=== PATIENT | female | born 1980 | race Caucasian/White ===

== ENCOUNTER 2017-05-27 12:27 | Emergency (ER) | payer SELFPAY ==
[~2017-05-27] VITALS: Ht 165.1 cm; Wt 108.0 kg
[2017-05-27] MEDS ORDERED: IOHEXOL 350 MG/ML 10 ML VIAL (for RAD DIAG) IVCONTRAST ONE (12:28)
--- NOTE | 2017-05-27 14:45 | PD ---
HPI Chief Complaint: abdominal pain Time Seen by Provider: 14:45 Travel History International Travel<30 days: No Contact w/Intl Traveler<30days: No History of Present Illness HPI 36-year-old female presents to the ED for evaluation of 3 or 4 month history intermittent right upper quadrant abdominal pain, nausea and vomiting. Worsened over the last 2 days. Patient endorses accompanying chills and constipation. No alleviating or exacerbating factors reported. Patient denies previous abdominal surgery. She denies alcohol use. PFSH Social History Tobacco Use: No Allergies-Medications (Allergen,Severity, Reaction): Coded Allergies: No Known Allergies (Verified , 06/11/03) Uncoded Allergies: NKA (Allergy, Unknown, 06/12/03) Reported Meds & Prescriptions Reported Meds & Active Scripts Active Lortab (Hydrocodone-Acetaminophen) 5-325 Mg Tab 1 Tab PO Q6H PRN Zofran Odt (Ondansetron Odt) 4 Mg Tab 4 Mg SL Q6HR PRN Review of Systems Except as stated in HPI: all other systems reviewed are Neg Physical Exam Narrative GENERAL: Well-nourished, well-developed tearful, obese female in no acute distress. SKIN: Focused skin assessment warm/dry. HEAD: Normocephalic. EYES: No scleral icterus. No injection or drainage. NECK: Supple, trachea midline. No JVD or lymphadenopathy. CARDIOVASCULAR: Regular rate and rhythm without murmurs, gallops, or rubs. RESPIRATORY: Breath sounds equal bilaterally. No accessory muscle use. GASTROINTESTINAL: Abdomen soft, protuberant, nondistended. Tender to palpation in the right upper quadrant. No palpable hepatosplenomegaly. Active bowel sounds. MUSCULOSKELETAL: No cyanosis, or edema. BACK: Nontender without obvious deformity. No CVA tenderness. Data Data Last Documented VS Vital Signs Date Time Temp Pulse Resp B/P (MAP) Pulse Ox O2 Delivery O2 Flow Rate FiO2 05/27/17 19:04 77 17 167/59 (95) 100 05/27/17 14:46 98.8 Orders Orders Complete Blood Count With Diff (05/27/17 15:15) Comprehensive Metabolic Panel (05/27/17 15:15) Lipase (05/27/17 15:15) Urinalysis - C+S If Indicated (05/27/17 15:15) Us Abdomen Gallbladder (05/27/17 ) Iv Access Insert/Monitor (05/27/17 15:15) Ecg Monitoring (05/27/17 15:15) Oximetry (05/27/17 15:15) NPO (05/27/17 15:15) Morphine Inj (Morphine Inj) (05/27/17 15:15) Ondansetron Inj (Zofran Inj) (05/27/17 15:15) Sodium Chlor 0.9% 1000 Ml Inj (Ns 1000 M (05/27/17 15:15) Sodium Chloride 0.9% Flush (Ns Flush) (05/27/17 15:15) Ed Urine Pregnancytest Poc (05/27/17 15:15) Ct Abd/Pel W Iv Contrast(Rout) (05/27/17 16:17) Iohexol 350 Inj (Omnipaque 350 Inj) (05/27/17 12:28) Potassium Chloride (Kcl) (05/27/17 19:30) Ondansetron Inj (Zofran Inj) (05/27/17 20:00) Morphine Inj (Morphine Inj) (05/27/17 20:00) Labs Laboratory Tests Test 05/27/17 15:25 05/27/17 18:25 White Blood Count 7.2 TH/MM3 Red Blood Count 5.47 MIL/MM3 Hemoglobin 16.1 GM/DL Hematocrit 48.1 % Mean Corpuscular Volume 88.0 FL Mean Corpuscular Hemoglobin 29.4 PG Mean Corpuscular Hemoglobin Concent 33.5 % Red Cell Distribution Width 13.9 % Platelet Count 249 TH/MM3 Mean Platelet Volume 8.4 FL Neutrophils (%) (Auto) 63.6 % Lymphocytes (%) (Auto) 22.4 % Monocytes (%) (Auto) 9.9 % Eosinophils (%) (Auto) 3.5 % Basophils (%) (Auto) 0.6 % Neutrophils # (Auto) 4.6 TH/MM3 Lymphocytes # (Auto) 1.6 TH/MM3 Monocytes # (Auto) 0.7 TH/MM3 Eosinophils # (Auto) 0.3 TH/MM3 Basophils # (Auto) 0.0 TH/MM3 CBC Comment DIFF FINAL Differential Comment Blood Urea Nitrogen 9 MG/DL Creatinine 0.64 MG/DL Random Glucose 87 MG/DL Total Protein 7.8 GM/DL Albumin 3.8 GM/DL Calcium Level 8.8 MG/DL Alkaline Phosphatase 78 U/L Aspartate Amino Transf (AST/SGOT) 11 U/L Alanine Aminotransferase (ALT/SGPT) 10 U/L Total Bilirubin 1.1 MG/DL Sodium Level 139 MEQ/L Potassium Level 3.1 MEQ/L Chloride Level 104 MEQ/L Carbon Dioxide Level 25.8 MEQ/L Anion Gap 9 MEQ/L Estimat Glomerular Filtration Rate 106 ML/MIN Lipase 73 U/L Urine Color YELLOW Urine Turbidity HAZY Urine pH 5.5 Urine Specific [place] 1.022 Urine Protein TRACE mg/dL Urine Glucose (UA) NEG mg/dL Urine Ketones 10 mg/dL Urine Occult Blood NEG Urine Nitrite NEG Urine Bilirubin NEG Urine Urobilinogen LESS THAN 2.0 MG/DL Urine Leukocyte Esterase NEG Urine RBC LESS THAN 1 /hpf Urine WBC 2 /hpf Urine Squamous Epithelial Cells 3 /hpf Urine Mucus FEW /lpf Microscopic Urinalysis Comment CULT NOT INDICATED MDM Medical Decision Making Medical Screen Exam Complete: Yes Emergency Medical Condition: Yes Differential Diagnosis Cholecystitis versus pancreatitis versus bowel obstruction versus biliary obstruction versus other Narrative Course 36-year-old female presents to the ED for evaluation of 3 or 4 month history intermittent right upper quadrant abdominal pain, nausea and vomiting. Worsened over the last 2 days. Patient endorses accompanying chills and constipation. No alleviating or exacerbating factors reported. Patient denies previous abdominal surgery. She denies alcohol use. Vitals reviewed. Physical exam reveals a tearful white female in no acute distress. There is tenderness in the right upper quadrant but the abdominal exam is otherwise unremarkable. No palpable hepatosplenomegaly. IV was established. Patient administered 1 L normal saline, 4 mg Zofran, 4 mg morphine IV. CBC: No leukocytosis or anemia. CMP: Mild hypokalemia. Mild elevation of bilirubin at 1.1. UA: No culture indicated. Upper quadrant ultrasound: Hepatomegaly, right adrenal mass CT abdomen and pelvis: Bilateral fatty adrenal masses, right greater than left. Ovarian cyst. Discussed the results of the workup with the patient she is aware of the ovarian cysts. She is also aware of the adrenal mass, first notified a few years ago but has not followed up. I discussed the patient with Dr. Tamayo who suggests outpatient follow-up with the engagement director. Mandatory outpatient consult placed. Patient was provided a short course of pain and nausea medications. She was informed of the mandatory consult process. She is agreeable to the care plan. She is stable and discharged home. Diagnosis Primary Impression: Adrenal mass, left Additional Impressions: Adrenal mass, right Hypokalemia Referrals: [facility] Patient Instructions: Acute Nausea and Vomiting (ED), General Instructions Additional Instructions: Rest, hydrate. Return to normal, gentle activity as tolerated. Take medications as prescribed. Do not drive while taking narcotic pain medications. A mandatory outpatient consult has been placed on your behalf. Either the hospital or the engagement director office will be in contact with you in the next 7-10 days. Return to the ED for worsening symptoms or any urgent or emergent medical condition. Med/Other Pt SpecificInfo: Prescription(s) given Scripts Hydrocodone-Acetaminophen (Lortab) 5-325 Mg Tab 1 TAB PO Q6H Y for PAIN, #15 TAB 0 Refills Prov: Lane Tamayo MD 05/27/17 Ondansetron Odt (Zofran Odt) 4 Mg Tab 4 MG SL Q6HR Y for Nausea/Vomiting, #10 TAB 0 Refills Prov: Beto Abraham MD 05/27/17 Disposition: 01 DISCHARGE HOME Condition: Stable Ann Marie Lee May 27, 2017 14:45
[2017-05-27 14:46] VITALS: BP 152/97; PULSE 70; RESP 17; TEMP 98.8; O2SAT 100
[2017-05-27] MEDS ORDERED: MORPHINE SULFATE 4 MG/ML INJ IV PUSH ONE ×2 (15:15→20:00)
[2017-05-27] MEDS ORDERED: SODIUM CHLOR 0.9% 1000 ML INJ 1,000 ML IV SCH (15:15)
[2017-05-27] MEDS ORDERED: ONDANSETRON HCL 4 MG/2 ML VIAL IVP ONE (15:15)
--- NOTE | 2017-05-27 16:02 | RADRPT ---
EXAM DATE/TIME: 05/27/2017 15:18 [facility] COMPARISON: No previous studies available for comparison. INDICATIONS : Right upper quadrant pain. MEDICAL HISTORY : Hypertension. Hypercholesterolemia. Diabetes. Substance use. Abdominal pain. SURGICAL HISTORY : None. ENCOUNTER: Initial ACUITY: 1 day PAIN SCORE: 6/10 LOCATION: Right upper quadrant MEASUREMENTS: LIVER: 21 cm length COMMON DUCT: 2 mm RIGHT KIDNEY: 11.7 x 6.0 x 5.4 cm FINDINGS: LIVER: Liver is enlarged measuring up to 21 cm without evidence for significant intrapelvic ductal dilatatio n or focal mass. COMMON DUCT: No intraluminal mass or stone visualized. GALLBLADDER: Contains no stones, demonstrates no wall thickening or pericholecystic fluid. PANCREAS: The visualized portions are within normal limits. RIGHT KIDNEY: There is an echogenic solid mass measuring 5.6 x 4.9 x 4.4 cm that appears to be separate from the ri ght kidney and likely adrenal in origin. Right kidney otherwise appears unremarkable without evidence of hydronephrosis or stone. CONCLUSION: 1. Hepatomegaly with homogeneous normal hepatic echogenicity. 2. Echogenic solid mass measuring 5.6 x 4.9 x 4.4 cm which appears to be separate from the right kidn ey and likely adrenal in etiology. Consider further evaluation with CT or MRI examination. Sidney Castellanos MD on May 27, 2017 at 15:57 Board Certified Radiologist. This report was verified electronically.
[2017-05-27 16:22] LABS: AUTOMATED NEUTROPHIL # 4.6 TH/MM3 (1.8-7.7); BASOPHIL % 0.6 % (0.0-2.0); EOSINOPHIL # 0.3 TH/MM3 (0-0.4); EOSINOPHIL % 3.5 % (0.0-4.0); HEMATOCRIT 48.1 % (35.0-46.0); HEMO FLAGS DIFF FINAL; LYMPH % 22.4 % (9.0-44.0); LYMPHOCYTE # 1.6 TH/MM3 (1.0-4.8); MEAN CORPUSCULAR HEMOGLOBIN 29.4 PG (27.0-34.0); MEAN CORPUSCULAR HGB CONC 33.5 % (32.0-36.0); MONO % 9.9 % (0.0-8.0); NEUT % 63.6 % (16.0-70.0); PLATELET COUNT 249 TH/MM3 (150-450); RED BLOOD COUNT 5.47 MIL/MM3 (4.00-5.30); RED CELL DISTRIBUTION WIDTH 13.9 % (11.6-17.2); WHITE BLOOD COUNT 7.2 TH/MM3 (4.0-11.0)
[2017-05-27 16:38] LABS: ALT (GPT) 10 U/L (10-53); ANION GAP 9 MEQ/L (5-15); AST (GOT) 11 U/L (15-37); BICARBONATE 25.8 MEQ/L (21.0-32.0); BLOOD UREA NITROGEN 9 MG/DL (7-18); CHLORIDE 104 MEQ/L (98-107); GLOMERULAR FILTRATION RATE 106 ML/MIN (>89); POTASSIUM 3.1 MEQ/L (3.5-5.1); SODIUM (NA) 139 MEQ/L (136-145)
[2017-05-27] MEDS: SODIUM CHLORIDE 0.9% FLUSH 10 ML FLUSH IV FLUSH PRN ×2 (16:39→20:47)
[2017-05-27 16:40] LABS: ALKALINE PHOSPHATASE 78 U/L (45-117); TOTAL BILIRUBIN ADULT 1.1 MG/DL (0.2-1.0)
[2017-05-27 19:04] VITALS: BP 167/59; PULSE 77; RESP 17; O2SAT 100
[2017-05-27 19:09] LABS: BLOOD, URINE NEG (NEG); COMMENT (UR) CULT NOT INDICATED; CULTURE IF INDICATED CULT NOT INDICATED; GLUCOSE,URINE NEG (NEG); KETONE, URINE 10 mg/dL (NEG); MUCUS URINE FEW /lpf (OCC); NITRITE,URINE NEG (NEG); PH, URINE 5.5 (5.0-8.5); SQUAMOUS EPITHELIAL CELL URINE 3 /hpf (0-5); URINE COLOR YELLOW (YELLW/STRAW)
[2017-05-27] MEDS ORDERED: POTASSIUM CHLORIDE 20 MEQ CONTROLLED RELEASE TAB PO ONE (19:30)
--- NOTE | 2017-05-27 19:40 | RADRPT ---
EXAM DATE/TIME: 05/27/2017 19:03 [facility] COMPARISON: US ABDOMEN - GALLBLADDER, May 27, 2017, 15:18. INDICATIONS : Right upper quadrant pain with nausea. Evaluate adrenal mass seen on ultrasound. IV CONTRAST: 100 cc Omnipaque 350 (iohexol) IV ORAL CONTRAST: No oral contrast ingested. RADIATION DOSE: 16.80 CTDIvol (mGy) MEDICAL HISTORY : Hypertension. Diabetes. SURGICAL HISTORY : None. ENCOUNTER: Initial ACUITY: 2 days PAIN SCALE: 6/10 LOCATION: Right upper quadrant TECHNIQUE: Volumetric scanning of the abdomen and pelvis was performed. Using automated exposure control and ad justment of the mA and/or kV according to patient size, radiation dose was kept as low as reasonably achievable to obtain optimal diagnostic quality images. DICOM format image data is available electro nically for review and comparison. FINDINGS: LOWER LUNGS: The visualized lower lungs are clear. LIVER: Homogeneous density without lesion. There is no dilation of the biliary tree. No calcified gallston es. SPLEEN: Normal size without lesion. PANCREAS: Within normal limits. KIDNEYS: Normal in size and shape. There is no mass, stone or hydronephrosis. ADRENAL GLANDS: There is a macroscopic fat containing mass arising from the right adrenal gland measuring approximate ly 6.6 x 4.7 cm. It abuts the right lobe of the liver. There is a left soft tissue density and a macr oscopic fat containing mass of the left adrenal gland measuring 3.7 x 3.5 cm. VASCULAR: There is no aortic aneurysm. BOWEL/MESENTERY: The stomach, small bowel, and colon demonstrate no acute abnormality. There is no free intraperitone al air or fluid. ABDOMINAL WALL: Within normal limits. RETROPERITONEUM: There is no lymphadenopathy. BLADDER: No wall thickening or mass. REPRODUCTIVE: There is a dominant functional cyst/follicle arising from the right ovary measuring 3.7 cm. INGUINAL: There is no lymphadenopathy or hernia. MUSCULOSKELETAL: No acute abnormality. CONCLUSION: 1. There are bilateral adrenal gland masses which contain fat. The right adrenal gland mass measures 6.6 cm and the left adrenal gland mass measures 3.7 cm. Imaging features are characteristic of myelol ipoma's. 2. Dominant right ovarian cystic lesion measuring 3.7 cm, likely representing a functional cyst/folli glenis. Mike Rodriguez MD on May 27, 2017 at 19:34 Board Certified Radiologist. This report was verified electronically.
[2017-05-27] MEDS ORDERED: HYDR-3533 PO ×2 (19:57→20:00)
[2017-05-27] MEDS ORDERED: ZOFR4TAB3 SL (19:57)
[2017-05-27] MEDS ORDERED: ONDANSETRON HCL 4 MG/2 ML VIAL IV PUSH ONE (20:00)
== END 2017-05-27 22:24 | disposition home or self-care (01) ==
LOC: NED 12:27 → NEPD 22:24
DX: E27.8 Other specified disorders of adrenal gland (principal); E87.6 Hypokalemia; R16.0 Hepatomegaly, not elsewhere classified; N83.201 Unspecified ovarian cyst, right side; R11.2 Nausea with vomiting, unspecified; Z79.899 Other long term (current) drug therapy
CPT/HCPCS: 74177; 76705; 80053; 81001; 83690; 84703; 85025; 96361; 96374; 96375; 96376; 99285; J2270; J2405; J7030; Q9967

== ENCOUNTER 2017-09-14 08:29 | Emergency (ER) | payer SELFPAY ==
[~2017-09-14 08:29] MED LIST: HYDR-3533 PO; ZOFR4TAB3 SL
[2017-09-14 08:31] VITALS: BP 187/102; PULSE 86; RESP 16; TEMP 98.7; O2SAT 100
[2017-09-14] MEDS ORDERED: METO5TAB PO (09:07)
[2017-09-14] MEDS ORDERED: SODIUM CHLOR 0.9% 1000 ML INJ 1,000 ML IV SCH (09:14)
[2017-09-14] MEDS ORDERED: SODIUM CHLORIDE 0.9% FLUSH 10 ML FLUSH IV FLUSH PRN (09:15)
[2017-09-14] MEDS ORDERED: ALUMINUM/MAGNESIUM/SIMETH 30 ML CUP PO ONE (09:15)
[2017-09-14] MEDS ORDERED: FAMOTIDINE 20 MG/2 ML VIAL IV PUSH ONE (09:15)
[2017-09-14] MEDS ORDERED: MORPHINE SULFATE 4 MG/ML INJ IV PUSH ONE ×2 (09:15→11:30)
[2017-09-14] MEDS ORDERED: ONDANSETRON HCL 4 MG/2 ML VIAL IVP ONE (09:15)
[2017-09-14] MEDS ORDERED: LIDOCAINE VISCOUS 2% SOLN 15 ML UDC PO ONE (09:15)
--- NOTE | 2017-09-14 09:20 | PD ---
HPI Chief Complaint: GI Complaint Time Seen by Provider: 08:52 Travel History International Travel<30 days: No Contact w/Intl Traveler<30days: No Traveled to known affect area: No History of Present Illness HPI The patient is a 36-year-old female who presents to the emergency department for intermittent abdominal pain of 8 months duration. The patient notes she has intermittent epigastric abdominal pain that radiates to left upper quadrant and to the back, is worse with certain foods, and alleviated in the past while she was taking a proton pump inhibitor and Carafate. The patient was seen in the emergency department in May where she underwent CT the abdomen and pelvis as well as an ultrasound of the gallbladder, results revealed incidental adrenalomas and recommended outpatient follow-up. The patient's pain is epigastric, burning, radiating to the back, moderate, and not worse with certain foods such as crackers, but can be exacerbated by other foods in the evening. She denies any known history of gallstones. She denies a previous abdominal surgeries. The patient's menstrual cycles are irregular, she denies . She denies any dysuria, frequency, urgency, fever, chills, or sweats. She does not have a local primary physician. PFSH Past Medical History Asthma: Yes (exercise induced) Diabetes: Yes (NO MEDS) Patient Takes Glucophage: No Diminished Hearing: No Hypertension: Yes ?: Unknown Past Surgical History Gynecologic Surgery: Yes (uterine biopsies) Tonsillectomy: Yes Other Surgery: Yes (removed two tumors benign) Social History Alcohol Use: Yes (occas) Tobacco Use: Yes Substance Use: Yes (MariJUANA) Allergies-Medications (Allergen,Severity, Reaction): Coded Allergies: No Known Allergies (Verified , 06/11/03) Uncoded Allergies: NKA (Allergy, Unknown, 06/12/03) Reported Meds & Prescriptions Reported Meds & Active Scripts Active Reported Metoclopramide (Metoclopramide HCl) 5 Mg Tab 5 Mg PO TID Review of Systems Except as stated in HPI: all other systems reviewed are Neg General / Constitutional: No: Fever, Chills Cardiovascular: No: Chest Pain or Discomfort Respiratory: No: Shortness of Breath Gastrointestinal: Positive: Nausea, Vomiting, Abdominal Pain, No: Diarrhea Genitourinary: No: Urgency, Frequency, Dysuria Skin: No Rash Physical Exam Narrative GENERAL: Awake, alert, pleasant 36-year-old female who appears her stated age and is in no acute respiratory distress. SKIN: Focused skin assessment warm/dry. HEAD: Atraumatic. Normocephalic. EYES: No injection or drainage. ENT: No nasal bleeding or discharge. Mucous membranes pink and moist. NECK: Trachea midline. No JVD. CARDIOVASCULAR: Regular rate and rhythm. No murmur appreciated. RESPIRATORY: No accessory muscle use. Clear to auscultation. Breath sounds equal bilaterally. GASTROINTESTINAL: Abdomen soft, mildly obese, mild epigastric tenderness. Negative Rivas's. Negative McBurney's. No guarding or rigidity. Back: No CVA tenderness. MUSCULOSKELETAL: No obvious deformities. No clubbing. No cyanosis. No edema. NEUROLOGICAL: Awake and alert. No obvious cranial nerve deficits. Motor grossly within normal limits. Normal speech. PSYCHIATRIC: Appropriate mood and affect; insight and judgment normal. Data Data Last Documented VS Vital Signs Date Time Temp Pulse Resp B/P (MAP) Pulse Ox O2 Delivery O2 Flow Rate FiO2 09/14/17 10:08 81 15 177/94 (121) 100 Room Air 09/14/17 08:31 98.7 Orders Orders Complete Blood Count With Diff (09/14/17 09:14) Comprehensive Metabolic Panel (09/14/17 09:14) Lipase (09/14/17 09:14) Urinalysis - C+S If Indicated (09/14/17 09:14) Iv Access Insert/Monitor (09/14/17 09:14) Ecg Monitoring (09/14/17 09:14) Oximetry (09/14/17 09:14) Morphine Inj (Morphine Inj) (09/14/17 09:15) Ondansetron Inj (Zofran Inj) (09/14/17 09:15) Sodium Chlor 0.9% 1000 Ml Inj (Ns 1000 M (09/14/17 09:14) Sodium Chloride 0.9% Flush (Ns Flush) (09/14/17 09:15) Famotidine Inj (Pepcid Inj) (09/14/17 09:15) Al-Mag Hy-Si 40-40-4 Mg/Ml Liq (Mag-Al P (09/14/17 09:15) Lidocaine 2% Viscous (Xylocaine 2% Visco (09/14/17 09:15) Ed Urine Pregnancytest Poc (09/14/17 09:14) Morphine Inj (Morphine Inj) (09/14/17 11:30) Ondansetron Inj (Zofran Inj) (09/14/17 11:30) Labs Laboratory Tests Test 09/14/17 09:50 White Blood Count 9.3 TH/MM3 Red Blood Count 5.80 MIL/MM3 Hemoglobin 17.4 GM/DL Hematocrit 50.9 % Mean Corpuscular Volume 87.7 FL Mean Corpuscular Hemoglobin 30.0 PG Mean Corpuscular Hemoglobin Concent 34.2 % Red Cell Distribution Width 14.3 % Platelet Count 227 TH/MM3 Mean Platelet Volume 8.7 FL Neutrophils (%) (Auto) 64.8 % Lymphocytes (%) (Auto) 23.7 % Monocytes (%) (Auto) 5.7 % Eosinophils (%) (Auto) 5.4 % Basophils (%) (Auto) 0.4 % Neutrophils # (Auto) 6.0 TH/MM3 Lymphocytes # (Auto) 2.2 TH/MM3 Monocytes # (Auto) 0.5 TH/MM3 Eosinophils # (Auto) 0.5 TH/MM3 Basophils # (Auto) 0.0 TH/MM3 CBC Comment DIFF FINAL Differential Comment Urine Color LIGHT-YELLOW Urine Turbidity CLEAR Urine pH 7.0 Urine Specific [place] 1.011 Urine Protein NEG mg/dL Urine Glucose (UA) NEG mg/dL Urine Ketones NEG mg/dL Urine Occult Blood NEG Urine Nitrite NEG Urine Bilirubin NEG Urine Urobilinogen LESS THAN 2.0 MG/DL Urine Leukocyte Esterase NEG Urine RBC LESS THAN 1 /hpf Urine WBC 1 /hpf Urine Squamous Epithelial Cells 3 /hpf Urine Mucus FEW /lpf Microscopic Urinalysis Comment CULT NOT INDICATED Blood Urea Nitrogen 10 MG/DL Creatinine 0.66 MG/DL Random Glucose 128 MG/DL Total Protein 7.5 GM/DL Albumin 3.6 GM/DL Calcium Level 9.0 MG/DL Alkaline Phosphatase 81 U/L Aspartate Amino Transf (AST/SGOT) 11 U/L Alanine Aminotransferase (ALT/SGPT) 12 U/L Total Bilirubin 0.4 MG/DL Sodium Level 138 MEQ/L Potassium Level 3.9 MEQ/L Chloride Level 106 MEQ/L Carbon Dioxide Level 24.0 MEQ/L Anion Gap 8 MEQ/L Estimat Glomerular Filtration Rate 102 ML/MIN Lipase 246 U/L [facility] Medical Decision Making Medical Screen Exam Complete: Yes Emergency Medical Condition: Yes Medical Record Reviewed: Yes Interpretation(s) Laboratory Tests Test 09/14/17 09:50 White Blood Count 9.3 TH/MM3 Red Blood Count 5.80 MIL/MM3 Hemoglobin 17.4 GM/DL Hematocrit 50.9 % Mean Corpuscular Volume 87.7 FL Mean Corpuscular Hemoglobin 30.0 PG Mean Corpuscular Hemoglobin Concent 34.2 % Red Cell Distribution Width 14.3 % Platelet Count 227 TH/MM3 Mean Platelet Volume 8.7 FL Neutrophils (%) (Auto) 64.8 % Lymphocytes (%) (Auto) 23.7 % Monocytes (%) (Auto) 5.7 % Eosinophils (%) (Auto) 5.4 % Basophils (%) (Auto) 0.4 % Neutrophils # (Auto) 6.0 TH/MM3 Lymphocytes # (Auto) 2.2 TH/MM3 Monocytes # (Auto) 0.5 TH/MM3 Eosinophils # (Auto) 0.5 TH/MM3 Basophils # (Auto) 0.0 TH/MM3 CBC Comment DIFF FINAL Differential Comment Urine Color LIGHT-YELLOW Urine Turbidity CLEAR Urine pH 7.0 Urine Specific [place] 1.011 Urine Protein NEG mg/dL Urine Glucose (UA) NEG mg/dL Urine Ketones NEG mg/dL Urine Occult Blood NEG Urine Nitrite NEG Urine Bilirubin NEG Urine Urobilinogen LESS THAN 2.0 MG/DL Urine Leukocyte Esterase NEG Urine RBC LESS THAN 1 /hpf Urine WBC 1 /hpf Urine Squamous Epithelial Cells 3 /hpf Urine Mucus FEW /lpf Microscopic Urinalysis Comment CULT NOT INDICATED Blood Urea Nitrogen 10 MG/DL Creatinine 0.66 MG/DL Random Glucose 128 MG/DL Total Protein 7.5 GM/DL Albumin 3.6 GM/DL Calcium Level 9.0 MG/DL Alkaline Phosphatase 81 U/L Aspartate Amino Transf (AST/SGOT) 11 U/L Alanine Aminotransferase (ALT/SGPT) 12 U/L Total Bilirubin 0.4 MG/DL Sodium Level 138 MEQ/L Potassium Level 3.9 MEQ/L Chloride Level 106 MEQ/L Carbon Dioxide Level 24.0 MEQ/L Anion Gap 8 MEQ/L Estimat Glomerular Filtration Rate 102 ML/MIN Lipase 246 U/L Differential Diagnosis Differential diagnosis includes gastritis, pancreatitis, peptic ulcer disease, cholecystitis, biliary colic, symptomatically cholelithiasis. Narrative Course IV was established, labs are drawn and sent, and the patient was placed on cardiac telemetry monitoring and continuous pulse oximetry monitoring. The patient was administered Pepcid intravenously, morphine, Zofran, GI cocktail, and IV fluids. I reviewed the patient's CT results and ultrasound results from her previous visit in May. The patient's LFTs and lipase are unremarkable. Hemoglobin was slightly elevated at 17.4, may be secondary to hemoconcentration. The patient was reassessed at 11 AM. The patient still has moderate epigastric to left upper quadrant abdominal pain, therefore, was administered another dose of morphine and Zofran. I will refer the patient to the [facility] and place a mandatory referral for gastroenterology, she may benefit from outpatient GI follow-up and possible endoscopy. Diagnosis Primary Impression: Epigastric abdominal pain Referrals: Gilbert Egan MD [facility] call for appointment Patient Instructions: General Instructions Additional Instructions: Medications as directed. Follow-up with your primary physician and/or gastroenterology on an outpatient basis. Return if symptoms worsen or progress. Med/Other Pt SpecificInfo: Prescription(s) given Scripts Sucralfate (Carafate) 1 Gram Tab 1 GM PO TID for Ulcer Prevention, #90 TAB 0 Refills On empty stomach Prov: Lazaro Cunha MD 09/14/17 Lansoprazole (Prevacid) 30 Mg Capdr 30 MG PO DAILY for 28 Days, #30 CAP 0 Refills Prov: Lazaro Cunha MD 09/14/17 Disposition: 01 DISCHARGE HOME Condition: Stable Lazaro Cunha MD Sep 14, 2017 09:20
[2017-09-14 10:08] VITALS: BP 177/94; PULSE 81; RESP 15; O2SAT 100
[2017-09-14 10:27] LABS: BASOPHIL % 0.4 % (0.0-2.0); EOSINOPHIL # 0.5 TH/MM3 (0-0.4); EOSINOPHIL % 5.4 % (0.0-4.0); HEMATOCRIT 50.9 % (35.0-46.0); HEMO FLAGS DIFF FINAL; LYMPH % 23.7 % (9.0-44.0); LYMPHOCYTE # 2.2 TH/MM3 (1.0-4.8); MEAN CELL VOLUME 87.7 FL (80.0-100.0); MEAN CORPUSCULAR HGB CONC 34.2 % (32.0-36.0); MONO % 5.7 % (0.0-8.0); NEUT % 64.8 % (16.0-70.0); PLATELET COUNT 227 TH/MM3 (150-450); RED CELL DISTRIBUTION WIDTH 14.3 % (11.6-17.2); WHITE BLOOD COUNT 9.3 TH/MM3 (4.0-11.0)
[2017-09-14 10:29] LABS: BLOOD, URINE NEG (NEG); GLUCOSE,URINE NEG (NEG); KETONE, URINE NEG (NEG); MUCUS URINE FEW /lpf (OCC); NITRITE,URINE NEG (NEG); SQUAMOUS EPITHELIAL CELL URINE 3 /hpf (0-5); URINE COLOR LIGHT-YELLOW (YELLW/STRAW)
[2017-09-14 10:30] LABS: COMMENT (UR) CULT NOT INDICATED; CULTURE IF INDICATED CULT NOT INDICATED
[2017-09-14 10:41] LABS: ALT (GPT) 12 U/L (10-53); ANION GAP 8 MEQ/L (5-15); AST (GOT) 11 U/L (15-37); BLOOD UREA NITROGEN 10 MG/DL (7-18); CHLORIDE 106 MEQ/L (98-107); GLOMERULAR FILTRATION RATE 102 ML/MIN (>89); POTASSIUM 3.9 MEQ/L (3.5-5.1); SODIUM (NA) 138 MEQ/L (136-145)
[2017-09-14 10:43] LABS: ALKALINE PHOSPHATASE 81 U/L (45-117); TOTAL BILIRUBIN ADULT 0.4 MG/DL (0.2-1.0)
[2017-09-14] MEDS ORDERED: ONDANSETRON HCL 4 MG/2 ML VIAL IV PUSH ONE (11:30)
[2017-09-14] MEDS ORDERED: PREV30CA36 PO (11:32)
[2017-09-14] MEDS ORDERED: CARA1TAB6 PO (11:32)
[2017-09-14 12:03] VITALS: BP 169/91
== END 2017-09-14 12:11 | disposition home or self-care (01) ==
LOC: NEPE 08:29
DX: R10.13 Epigastric pain (principal); R10.12 Left upper quadrant pain; R11.2 Nausea with vomiting, unspecified; J45.909 Unspecified asthma, uncomplicated; E11.9 Type 2 diabetes mellitus without complications; I10 Essential (primary) hypertension; Z72.0 Tobacco use
CPT/HCPCS: 80053; 81001; 83690; 84703; 85025; 96374; 96375; 96376; 99285; J2270; J2405; J7030

== ENCOUNTER 2018-01-27 00:01 | Emergency (ER) | payer SELFPAY ==
[~2018-01-27] VITALS: Ht 167.6 cm; Wt 105.0 kg
[~2018-01-27 00:01] MED LIST changes: +CARA1TAB6 PO; -HYDR-3533 PO; +METO5TAB PO; +PREV30CA36 PO; -ZOFR4TAB3 SL
[2018-01-27 00:23] VITALS: BP 143/76; PULSE 102; RESP 18; TEMP 98.9; O2SAT 99
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
[2018-01-27] MEDS ORDERED: ONDANSETRON HCL 4 MG/2 ML VIAL IV PUSH ONE (01:30)
[2018-01-27] MEDS ORDERED: KETOROLAC TROMETHAMINE 30 MG/ML (IVP) VIAL IV PUSH ONE (01:30)
[2018-01-27] MEDS ORDERED: MORPHINE SULFATE 4 MG/ML INJ IV PUSH ONE (01:30)
[2018-01-27 02:12] LABS: BASOPHIL # 0.1 TH/MM3 (0-0.2); BASOPHIL % 0.5 % (0.0-2.0); EOSINOPHIL # 0.4 TH/MM3 (0-0.4); EOSINOPHIL % 3.3 % (0.0-4.0); HEMATOCRIT 43.8 % (35.0-46.0); LYMPH % 18.9 % (9.0-44.0); LYMPHOCYTE # 2.2 TH/MM3 (1.0-4.8); MEAN CELL VOLUME 87.1 FL (80.0-100.0); MEAN CORPUSCULAR HEMOGLOBIN 29.8 PG (27.0-34.0); MEAN CORPUSCULAR HGB CONC 34.2 % (32.0-36.0); MEAN PLATELET VOLUME 8.5 FL (7.0-11.0); MONO % 7.7 % (0.0-8.0); MONOCYTE # 0.9 TH/MM3 (0-0.9); NEUT % 69.6 % (16.0-70.0); PLATELET COUNT 221 TH/MM3 (150-450); RED BLOOD COUNT 5.03 MIL/MM3 (4.00-5.30); RED CELL DISTRIBUTION WIDTH 14.2 % (11.6-17.2); WHITE BLOOD COUNT 11.5 TH/MM3 (4.0-11.0)
[2018-01-27 02:17] VITALS: BP 135/68; PULSE 78; RESP 16; O2SAT 96
[2018-01-27 02:22] LABS: ALBUMIN 3.5 GM/DL (3.4-5.0); ALT (GPT) 11 U/L (10-53); AST (GOT) 9 U/L (15-37); BICARBONATE 26.2 MEQ/L (21.0-32.0); BLOOD UREA NITROGEN 16 MG/DL (7-18); CALCIUM 8.8 MG/DL (8.5-10.1); CHLORIDE 106 MEQ/L (98-107); GLOMERULAR FILTRATION RATE 81 ML/MIN (>89); GLUCOSE,RANDOM 126 MG/DL (74-106); SODIUM (NA) 141 MEQ/L (136-145)
[2018-01-27 02:24] LABS: ALKALINE PHOSPHATASE 70 U/L (45-117); TOTAL BILIRUBIN ADULT 0.4 MG/DL (0.2-1.0); TOTAL PROTEIN 7.4 GM/DL (6.4-8.2)
--- NOTE | 2018-01-27 02:32 | RADRPT ---
EXAM DATE/TIME: 01/27/2018 01:54 [facility] COMPARISON: No previous studies available for comparison. INDICATIONS : Left hip pain for 6 hours with no known injury MEDICAL HISTORY : None. SURGICAL HISTORY : None. ENCOUNTER: Initial ACUITY: 1 day PAIN SCORE: 10/10 LOCATION: Left entire hip FINDINGS: Examination of the left hip was performed with AP Pelvis. The primary and secondary trabecular patte rn of the femoral neck is intact. The hip joint is of normal width without significant sclerosis or bony hypertrophy. The acetabulum is grossly intact. CONCLUSION: No acute fracture. Ronnie Rubio MD on January 27, 2018 at 2:31 Board Certified Radiologist. This report was verified electronically.
--- NOTE | 2018-01-27 03:37 | RADRPT ---
EXAM DATE/TIME: 01/27/2018 02:35 [facility] COMPARISON: CT ABDOMEN & PELVIS W CONTRAST, May 27, 2017, 19:03. INDICATIONS : Left hip pain; no injury. ORAL CONTRAST: No oral contrast ingested. RADIATION DOSE: 21.06 CTDIvol (mGy) MEDICAL HISTORY : None SURGICAL HISTORY : None. ENCOUNTER: Initial ACUITY: 1 day PAIN SCALE: 9/10 LOCATION: Left pelvis TECHNIQUE: Volumetric scanning of the pelvis was performed. Using automated exposure control and adjustment of the mA and/or kV according to patient size, radiation dose was kept as low as reasonably achievable t o obtain optimal diagnostic quality images. DICOM format image data is available electronically for review and comparison. FINDINGS: BOWEL/MESENTERY: The visualized small and large bowel demonstrate no acute abnormality. There is no free fluid. BLADDER: There is no wall thickening or mass. RETROPERITONEUM: There is no aneurysm or lymphadenopathy. REPRODUCTIVE: Right ovarian cyst measures 4.3 cm. INGUINAL: There is no lymphadenopathy or hernia. MUSCULOSKELETAL: Within normal limits for patient age. Left hip intact. There is no fracture. CONCLUSION: No fracture of left hip. Ronnie Rubio MD on January 27, 2018 at 3:33 Board Certified Radiologist. This report was verified electronically.
[2018-01-27] MEDS ORDERED: NORC5TAB PO (03:48)
[2018-01-27] MEDS ORDERED: CYCL10TA PO (03:48)
[2018-01-27] MEDS ORDERED: MEDR4PAK PO (03:48)
== END 2018-01-27 04:34 | disposition home or self-care (01) ==
LOC: NEPE 00:01
DX: M25.552 Pain in left hip (principal); R10.13 Epigastric pain; M25.50 Pain in unspecified joint; J45.909 Unspecified asthma, uncomplicated; E11.9 Type 2 diabetes mellitus without complications; I10 Essential (primary) hypertension; Z72.0 Tobacco use
CPT/HCPCS: 72192; 73502; 80053; 84703; 85025; 85652; 86140; 96374; 96375; 99285; J1885; J2270; J2405

== ENCOUNTER 2018-05-02 07:26 | Inpatient (IN) ==
[2018-05-02] MEDS ORDERED: Aluminum/Magnesium/Simethacone Susp 30 ML UDC PO ONE (08:00)
--- NOTE | 2018-05-02 08:13 | ED ---
HPI General Chief Complaint: Abdominal Pain Stated Complaint: Abd pain/vomiting Time Seen by Provider: 05/02/18 07:58 History of Present Illness HPI narrative: 37-year-old female with no past medical history presents emergency department for evaluation of abdominal pain. The abdominal pain has been chronic for a year but this is an acute worsening of it for the past 24 hours. She states that it is an epigastric bandlike pain that radiates to both subcostal areas. She says at times it is 10/10 on the pain scale but it comes in waves about every 5-10 minutes. She describes as a sharp and crampy pain that feels like it is burning. This pain is associated with nausea for which she took promethazine at home and it did not alleviate it. The pain does not radiate and she notes no alleviating or aggravating factors. She denies any change in her pain with types of food or eating in general. She reports that she does not normally take anything for the pain at home and does not often take any NSAIDs. The last time she was evaluated for this pain she says the told her she most likely had an ulcer but was unable to get an endoscopy because of insurance and financial issues. She states that 2 days ago she had one episode of a black and tarry stool but no obvious red blood. She denies any fevers, new diarrhea, blood in her stool, chest pain, shortness of breath, flank pain, hematuria, dysuria, or increased urinary frequency. Related Data Home Medications Medication Instructions Recorded Confirmed omeprazole 20 mg PO DAILY 05/02/18 05/02/18 promethazine 12.5 mg PO Q6H PRN 05/02/18 05/02/18 ranitidine HCl [Zantac Maximum 150 mg PO DAILY 05/02/18 05/02/18 Strength] Allergies Allergy/AdvReac Type Severity Reaction Status Date / Time No Known Allergies Allergy Verified 05/02/18 07:28 Review of Systems Constitutional Denies chills and Denies fever(s) Eyes Denies blurry vision and Denies diplopia ENT Denies headache(s) and Denies sore throat Cardiovascular Denies chest pain and Denies dyspnea Respiratory Denies cough and Denies pain on inspiration Gastrointestinal Reports abdominal pain (Epigastric), Reports heartburn, Denies diarrhea and Reports nausea Genitourinary Denies hematuria, Denies urinary frequency and Denies dysuria Musculoskeletal Denies back pain and Denies numbness Integumentary/Breasts Denies lesions and Denies rash Neurologic Denies dizziness and Denies headache(s) Psychiatric Reports anxiety and Reports other (Reported stress in life) Endocrine Denies excessive sweating PMFSH Medical History Medical History Abdominal pain (Acute) Adrenal mass (Acute) Gonorrhea contact, treated (Acute) Ovarian cyst (Acute) Surgical History Surgical History H/O breast biopsy (Acute) Hx of tonsillectomy (Acute) Family History Family History Grandparent Family history of acute myocardial infarction Family history of cancer Grandparent Family history of breast cancer Social History Social History Substance History: No History of Abuse Smoking Status: Current every day smoker (1/2 ppd for 2 years) How Often Do You Have a Drink Containing Alcohol: Never Recent Travel in [facility] within the Last 8 Weeks: No Recent Out of Country Travel within the Last 8 Weeks: No Immunization History Tetanus Immunization: Unsure Hx Influenza Vaccine This Season: No Exam Narrative Exam Narrative: Well-developed well-nourished female appearing in acute pain but in no acute respiratory distress GENERAL: Well-developed and well-nourished female appearing in no acute distress SKIN: Focused skin assessment warm/dry. HEAD: Atraumatic. Normocephalic. EYES: Pupils equal and round. No scleral icterus. No injection or drainage. ENT: No nasal bleeding or discharge. Mucous membranes pink and moist. NECK: Trachea midline. No JVD. CARDIOVASCULAR: Regular rate and rhythm. No murmur appreciated. RESPIRATORY: No accessory muscle use. Clear to auscultation. Breath sounds equal bilaterally. GASTROINTESTINAL: Mild epigastric and left upper quadrant tenderness to palpation, nontender, nondistended, no hepatosplenomegaly noted, no rebound tenderness, bowel sounds present in all 4 quadrants. RECTAL EXAM: No masses or tenderness, stool is brown. Trace heme positive. MUSCULOSKELETAL: No obvious deformities. No clubbing. No cyanosis. No edema. NEUROLOGICAL: Awake and alert and anxious appearing. No obvious cranial nerve deficits. Motor grossly within normal limits. Normal speech. Course Initial Documented Vital Signs Temperature 97.7 F 05/02/18 07:28 Pulse Rate 79 05/02/18 07:28 Respiratory Rate 18 05/02/18 07:28 Blood Pressure 197/105 H 05/02/18 07:28 Pulse Oximetry 100 05/02/18 07:28 Last Documented Vital Signs Temperature 97.7 F 05/02/18 07:28 Pulse Rate 60 05/02/18 10:38 Respiratory Rate 12 05/02/18 10:38 Blood Pressure 140/71 05/02/18 10:38 Pulse Oximetry 99 05/02/18 10:38 Medical Decision Making MDM Narrative Medical decision making narrative: This is a 37-year-old female presents today with epigastric pain. Patient reports of a severe. She reports that she has had this in the past. She is currently taking omeprazole that she was prescribed at [facility]. She states that she has not yet had an upper endoscopy. She does report that it is worse when she eats acidic food or goes to bed right after eating dinner. She states that the omeprazole has helped however is not completely taken away the pain and is actually gotten worse over the last couple days. The patient does have trace heme positive stools here in the emergency department. The patient had an episode of severe pain and started to cry. She was medicated with 4 mg of morphine. Given this her being her third visit to a hospital, we will admit the patient under observation. She will be admitted to the resident service. She will likely need an upper endoscopy. Case was discussed with the senior resident, Dr. Mckenzie who is agreeable. Differential Diagnosis Differential Diagnosis: Peptic ulcer disease versus pancreatitis versus atypical ACS versus cholecystitis Lab Data Lab results reviewed: Yes I reviewed the patient's lab results. Result diagrams: 05/02/18 08:09 05/02/18 08:09 Lab Results 05/02/18 05/02/18 05/02/18 Range/Units 08:09 08:09 08:25 WBC 9.3 (4.0-11.0) th/mm3 RBC 5.29 (4.00-5.30) mil/mm3 Hgb 15.7 H (11.6-15.3) gm/dL Hct 46.4 H (35.0-46.0) % MCV 87.7 (80.0-100.0) fL MCH 29.7 (27.0-34.0) pg MCHC 33.9 (32.0-36.0) % RDW 14.7 (11.6-17.2) % Plt Count 221 (150-450) th/mm3 MPV 8.3 (7.0-11.0) fL Neut % (Auto) 71.1 H (16.0-70.0) % Lymph % (Auto) 16.7 (9.0-44.0) % [place] % (Auto) 7.2 (0.0-8.0) % Eos % (Auto) 4.4 H (0.0-4.0) % Baso % (Auto) 0.6 (0.0-2.0) % Neut # (Auto) 6.6 (1.8-7.7) th/mm3 Lymph # (Auto) 1.6 (1.0-4.8) th/mm3 [place] # (Auto) 0.7 (0.0-0.9) th/mm3 Eos # (Auto) 0.4 (0.0-0.4) th/mm3 Baso # (Auto) 0.1 (0.0-0.2) th/mm3 WBC Differential . Differential Comment Auto diff final Sodium 140 (136-145) meq/L Potassium 3.9 (3.5-5.1) meq/L Chloride 110 H (98-107) meq/L Carbon Dioxide 23.8 (21.0-32.0) meq/L Anion Gap 6 (5-15) meq/L BUN 12 (7-18) mg/dL Creatinine 0.88 (0.50-1.00) mg/dL Estimated GFR 73 L (>89) mL/min Random Glucose 128 H (74-106) mg/dL Calcium 9.0 (8.5-10.1) mg/dL Total Bilirubin 0.6 (0.2-1.0) mg/dL AST 13 L (15-37) U/L ALT 13 (10-53) U/L Alkaline Phosphatase 83 (45-117) U/L Total Protein 8.0 (6.4-8.2) g/dL Albumin 3.7 (3.4-5.0) g/dL Lipase 94 (73-393) U/L Urine Color Yellow (Yellw/Straw) Urine Clarity Clear (Clear) Urine pH 7.0 (5.0-8.5) Ur Specific [place] 1.019 (1.002-1.035) Urine Protein Negative (Neg-Trace) mg/dL Urine Glucose (UA) Negative (Negative) mg/dL Urine Ketones Negative (Negative) mg/dL Urine Occult Blood Negative (Negative) Urine Nitrate Negative (Negative) Urine Bilirubin Negative (Negative) Urine Urobilinogen Less than 2 (Less than 2) mg/dL Ur Leukocyte Esterase Negative (Negative) Urine RBC 1 (0-3) /hpf Urine WBC 1 (0-5) /hpf Ur Squamous Epith Cells 2 (0-5) /hpf Micro UA Comment Culture not ind Urine Culture Comments Culture not ind Imaging Data Radiologist's impression: Abdomen X-Ray 05/02/18 08:00 CONCLUSION: Negative examination. Discharge Plan Discharge Disposition Patient Disposition: 30 Still Patient Discharge Details Diagnosis: Abdominal pain, Heme positive stool Physicians Team ED Provider: Meet George Primary Care Provider: UNKNOWN, Attending Provider: Emmanuel Dockery Other Providers: Charlotte Berg Discharge Interventions Interventions: Vital Signs Last Done: 05/02/18 10:38 Status ED Status: Admitted Observation Patient
[2018-05-02 08:34] LABS: Baso # (Auto) 0.1 th/mm3 (0.0-0.2); Baso % (Auto) 0.6 % (0.0-2.0); Eos # (Auto) 0.4 th/mm3 (0.0-0.4); Eos % (Auto) 4.4 % (0.0-4.0); Hematocrit 46.4 % (35.0-46.0); Hemoglobin 15.7 gm/dL (11.6-15.3); Lymph # (Auto) 1.6 th/mm3 (1.0-4.8); Lymph % (Auto) 16.7 % (9.0-44.0); Mean Corpuscular HGB Conc 33.9 % (32.0-36.0); Mean Corpuscular Hemoglobin 29.7 pg (27.0-34.0); Mean Corpuscular Volume 87.7 fL (80.0-100.0); Mean Platelet Volume 8.3 fL (7.0-11.0); Mono # (Auto) 0.7 th/mm3 (0.0-0.9); Mono % (Auto) 7.2 % (0.0-8.0); Neut # (Auto) 6.6 th/mm3 (1.8-7.7); Neut % (Auto) 71.1 % (16.0-70.0); Platelet Count 221 th/mm3 (150-450); Red Blood Count 5.29 mil/mm3 (4.00-5.30); Red Cell Distribution Width 14.7 % (11.6-17.2); White Blood Count 9.3 th/mm3 (4.0-11.0)
[2018-05-02 08:41] LABS: Bilirubin,Urine Negative (Negative); Clarity,Urine Clear (Clear); Color,Urine Yellow (Yellw/Straw); Glucose,Urine (UA) Negative (Negative); Leukocyte Esterase,Urine Negative (Negative); Nitrite,Urine Negative (Negative); Specific Gravity,Urine 1.019 (1.002-1.035); Squamous Epithelial Cell,Urine 2 /hpf (0-5)
[2018-05-02 08:56] LABS: Albumin 3.7 g/dL (3.4-5.0); Anion Gap 6 meq/L (5-15); Aspartate Aminotransferase 13 U/L (15-37); Blood Urea Nitrogen 12 mg/dL (7-18); Carbon Dioxide 23.8 meq/L (21.0-32.0); Chloride 110 meq/L (98-107); Glomerular Filtration Rate 73 mL/min (>89); Glucose,Random 128 mg/dL (74-106); Lipase 94 U/L (73-393); Potassium 3.9 meq/L (3.5-5.1); Sodium 140 meq/L (136-145)
[2018-05-02] MEDS ORDERED: Morphine Inj 4 MG/ML Vial IV.PUSH ONE (08:56)
[2018-05-02 08:57] LABS: Alanine Aminotransferase 13 U/L (10-53)
[2018-05-02 08:58] LABS: Alkaline Phosphatase 83 U/L (45-117)
--- NOTE | 2018-05-02 09:32 | XR ---
EXAM DATE: 05/02/2018 9:30 AM EDT AGE/SEX: 37 years / Female INDICATIONS: Abdominal pain. CLINICAL DATA: This is the patient's initial encounter. Patient reports that signs and symptoms have been present for > 1 year and indicates a pain score of 4/10. MEDICAL/SURGICAL HISTORY: None. None. COMPARISON: [facility] [place], CT ABDOMEN & PELVIS W CONTRAST, 05/27/2017. . FINDINGS: A single erect view of the abdomen demonstrates the lower lungs to be clear. No evidence of free intr aperitoneal gas. The visualized bowel loops are unremarkable. CONCLUSION: Negative examination. Electronically signed by: Cedric Khan MD 05/02/2018 9:31 AM EDT
--- NOTE | 2018-05-02 11:15 | P.HPFP ---
History of Present Illness Primary Care Physician: [facility] History of Present Illness: 37 year old female presents to the ED for abdominal pain with associated nausea and vomiting. This pain has been going on for about a year, located "under the rib cage" bilaterally. The pain is worse in the morning, describes it as a somewhat sharp, somewhat dull and burning pain that occurs. It radiates towards her back and up her esophagus. It occurs on and off throughout the day, she says that spicy/fried foods and red sauce foods and eating late at night triggers the pain more. She's changed her diet to avoid these food and it decreased the vomiting from everyday to once a week. She took some nausea medication to try to help but it didn't seem to help. Has not taken any pain medication for relief. She saw a GI doctor in November who prescribed her omeprazole but was unable to fill it until 2 weeks ago due to insurance issues. Currently takes omeprazole once a day and has been taking it for 2-3 weeks with minimal relief. She vomited twice this morning but denies any hematemesis or bilious content and that prompted her to come to the emergency room to seek further care. - Diagnosis (1) Abdominal pain (2) Irregular periods/menstrual cycles (3) Ovarian cyst (4) GERD (gastroesophageal reflux disease) (5) Nutrition, metabolism, and development symptoms (6) DVT prophylaxis Review of Systems Constitutional: Reports chills, Denies body ache(s), Denies fever(s), Denies headache(s) Comments: today and yesterday has had "cold sweats" Cardiovascular: Denies chest pain, Denies rapid, pounding, or irregular heartbeat Respiratory: Reports shortness of breath, Denies cough Gastrointestinal: Reports abdominal pain, Reports black, tarry stools, Reports bright, red blood in stools, Reports constipation Comments: occasional, last black and tarry stool one was a couple days ago. Has had blood in stools but Figured it was from straining from constipation Genitourinary: Reports abnormal periods, Denies painful urination, Denies vaginal odor Comments: every few months [facility] - History History Provided By: Patient - Medical History Medical History: Medical History (Last Updated 05/02/18 @ 11:36 by Lorin Lord MD, R1) Abdominal pain Adrenal mass Gonorrhea contact, treated Ovarian cyst - Surgical History Surgical History: Surgical History (Last Updated 05/02/18 @ 11:38 by Lorin Lord MD, R1) H/O breast biopsy Hx of tonsillectomy - Family History Family History: Family History (Last Updated 05/02/18 @ 11:40 by Lorin Lord MD, R1) Grandparent Family history of acute myocardial infarction Family history of cancer Grandparent Family history of breast cancer - Tobacco History Smoking Status: Current every day smoker (1/2 ppd for 2 years) - Alcohol History How Often Do You Have a Drink Containing Alcohol: Never - Substance Use History Substance History: No History of Abuse - Substance Use Type Marijuana Status: Active Route Used: By Mouth Crack/Cocaine Status: Sustained Remission - Travel History Recent Travel in the [place] Within the Last 8 Weeks: No Recent Travel Out of the Country Within the Last 8 Weeks: No - Immunization History Tetanus Immunization: Unsure Hx Influenza Vaccine This Season: No Medications and Allergies Active Medications: Active Medications Sodium Chloride (Ns Flush) 2 ml IV.FLUSH PRN PRN PRN Reason: FLUSH AFTER USING IV ACCESS Last Admin: 05/02/18 08:33 Dose: 2 ml Allergies Allergy/AdvReac Type Severity Reaction Status Date / Time No Known Allergies Allergy Verified 05/02/18 07:28 Home Medications Medication Instructions Recorded Confirmed Type omeprazole 20 mg PO DAILY 05/02/18 05/02/18 History promethazine 12.5 mg PO Q6H PRN 05/02/18 05/02/18 History ranitidine HCl [Zantac Maximum 150 mg PO DAILY 05/02/18 05/02/18 History Strength] Exam Vital signs: Vital Signs 05/02/18 07:28 05/02/18 07:44 05/02/18 08:10 Temperature 97.7 F Pulse Rate 79 77 Respiratory Rate 18 16 Blood Pressure 197/105 H 172/98 H Pulse Oximetry 100 100 100 05/02/18 09:02 05/02/18 09:03 05/02/18 10:38 Temperature Pulse Rate 59 L 60 Respiratory Rate 16 16 12 Blood Pressure 171/81 H 140/71 Pulse Oximetry 98 99 Intake & Output 05/01/18 05/02/18 05/02/18 18:59 06:59 18:59 Weight 81.647 kg - Routine HEENT Exam Head: Present: normocephalic, atraumatic - Routine Cardiovascular Exam Present: RRR, S1, S2 - Routine Abdominal Exam Present: soft, tenderness Comments: to palpation in the RUQ and RLQ - Detailed Abdominal Exam Palpation/Percussion: Present: Rivas's sign, tenderness at McBurney's point Results - Labs Result diagrams: 05/02/18 08:09 05/02/18 08:09 Abnormal lab results 05/02/18 05/02/18 Range/Units 08:09 08:09 Hgb 15.7 H (11.6-15.3) gm/dL Hct 46.4 H (35.0-46.0) % Neut % (Auto) 71.1 H (16.0-70.0) % Eos % (Auto) 4.4 H (0.0-4.0) % Chloride 110 H (98-107) meq/L Estimated GFR 73 L (>89) mL/min Random Glucose 128 H (74-106) mg/dL AST 13 L (15-37) U/L Short CBC 05/02/18 Range/Units 08:09 WBC 9.3 (4.0-11.0) th/mm3 Hgb 15.7 H (11.6-15.3) gm/dL Hct 46.4 H (35.0-46.0) % Plt Count 221 (150-450) th/mm3 BMP 05/02/18 08:09 Sodium 140 Potassium 3.9 Chloride 110 H Carbon Dioxide 23.8 BUN 12 Creatinine 0.88 Calcium 9.0 Liver Function 05/02/18 Range/Units 08:09 Total Bilirubin 0.6 (0.2-1.0) mg/dL AST 13 L (15-37) U/L ALT 13 (10-53) U/L Alkaline Phosphatase 83 (45-117) U/L Albumin 3.7 (3.4-5.0) g/dL Urine 05/02/18 Range/Units 08:25 Urine Color Yellow (Yellw/Straw) Urine Clarity Clear (Clear) Urine pH 7.0 (5.0-8.5) Ur Specific [place] 1.019 (1.002-1.035) Urine Protein Negative (Neg-Trace) mg/dL Urine Glucose (UA) Negative (Negative) mg/dL - Imaging Impressions Abdomen X-Ray 05/02/18 08:00 CONCLUSION: Negative examination. Caprini VTE Risk Assessment Caprini VTE Risk Assessment: No/Low Risk (score <= 1) Caprini Risk Assessment Model: Point Value = 1 Point Value = 2 Point Value = 3 Point Value = 5 Age 41-60 Minor surgery BMI > 25 kg/m2 Swollen legs Varicose veins or History of unexplained or recurrent spontaneous Oral contraceptives or hormone replacement Sepsis (< 1 month) Serious lung disease, including pneumonia (< 1 month) Abnormal pulmonary function Acute myocardial infarction Congestive heart failure (< 1 month) History of inflammatory bowel disease Medical patient at bed rest Age 61-74 Arthroscopic surgery Major open surgery (> 45 min) Laparoscopic surgery (> 45 min) Malignancy Confined to bed (> 72 hours) Immobilizing plaster cast Central venous access Age >= 75 History of VTE Family history of VTE Factor V Leiden Prothrombin [id number] Lupus anticoagulant Anticardiolipin antibodies Elevated serum homocysteine Heparin-induced thrombocytopenia Other congenital or acquired thrombophilia Stroke (< 1 month) Elective arthroplasty Hip, pelvis, or leg fracture Acute spinal cord injury (< 1 month) Prophylaxis Regimen: Total Risk Factor Score Risk Level Prophylaxis Regimen 0-1 Low Early ambulation 2 Moderate Order ONE of the following: *Sequential Compression Device (SCD) *Heparin 5000 units SQ BID 3-4 Higher Order ONE of the following medications: *Heparin 5000 units SQ TID *Enoxaparin/Lovenox 40 mg SQ daily (WT < 150 kg, CrCl > 30 mL/min) *Enoxaparin/Lovenox 30 mg SQ daily (WT < 150 kg, CrCl > 10-29 mL/min) *Enoxaparin/Lovenox 30 mg SQ BID (WT < 150 kg, CrCl > 30 mL/min) AND/OR *Sequential Compression Device (SCD) 5 or more Highest Order ONE of the following medications: *Heparin 5000 units SQ TID (Preferred with Epidurals) *Enoxaparin/Lovenox 40 mg SQ daily (WT < 150 kg, CrCl > 30 mL/min) *Enoxaparin/Lovenox 30 mg SQ daily (WT < 150 kg, CrCl > 10-29 mL/min) *Enoxaparin/Lovenox 30 mg SQ BID (WT < 150 kg, CrCl > 30 mL/min) AND *Sequential Compression Device (SCD) Assessment and Plan - Assessment (1) Abdominal pain Code(s): R10.9 - Unspecified abdominal pain Status: Acute Plan: Midepigastric abdominal pain with radiation to esophagus and back, associated nausea and vomiting for over a year and dark tarry/bloody stools, abnormal periods. DDX: Peptic Ulcer /GERD/ Costochondrasis /Pancreatitis/ Cholecystitis Appendicitis/ Ovarian Cysts/ /Cardiac CXRay Pending, will follow up Lipase Ordered to rule out pancreatitis, follow up. EKG pending/Troponin trending to rule out cardiac etiology as women can present with atypical chest pain. Transvaginal U/S to rule out ovarian cysts. Follow up. BHcG: Negative on admission Abd Xray: Negative Abd U/S ordered to rule out cholecystitis/appendicitis. Follow Up. CBC ordered, Hb Stable, Follow Up in AM. GI consulted, appreciate recommendations. Currently NPO in anticipation of procedure (2) Irregular periods/menstrual cycles Code(s): N92.6 - Irregular menstruation, unspecified Status: Acute Plan: Periods occur every 3 months and last for one day w/ hx of ovarian cysts. Denies any STDs. UA: Negative. DDx: PCOS vs . Transvaginal U/S, follow up. BhcG done in ED: Negative. (3) Ovarian cyst Code(s): N83.209 - Unspecified ovarian cyst, unspecified side Status: Acute Plan: Patient has irregular periods. Concern for PCOS. Beta hCG negative. Follow-up transvaginal ultrasound. (4) GERD (gastroesophageal reflux disease) Code(s): K21.9 - Gastro-esophageal reflux disease without esophagitis Status: Acute Plan: Past Hx of GERD, currently on Omeprazole/Ranitidine PO daily. Hold Home Meds of Omeprazole and ranitidine PO Start Protonix 40 IV for GI prophylaxis. Zofran PRN for nausea (5) Nutrition, metabolism, and development symptoms Code(s): R63.8 - Other symptoms and signs concerning food and fluid intake Status: Acute Plan: Fluids: NS at 120 mls/hr. Electrolytes: Stable. Monitor and replete as needed. Diet: NPO (6) DVT prophylaxis Status: Acute Plan: SCDs Only - Assessment and Plan 37-year-old female presents to ED for mid epigastric abdominal pain with associated nausea and vomiting, FOBT positive. Discharge Planning: Plan for discharge status post endoscopy and colonoscopy and relief of symptoms clinically.
[2018-05-02] MEDS ORDERED: Temazepam 15 MG Capsule PO PRN ×2 (11:56→12:00)
[2018-05-02] MEDS ORDERED: Bisacodyl 10 MG Supp RECTAL PRN (11:56)
[2018-05-02] MEDS ORDERED: Acetaminophen 325 MG Tablet PO PRN (12:00)
[2018-05-02] MEDS: Sod Chloride 0.9% Inj 1,000 ML IV.CONT SCH ×2 (12:15→22:29)
--- NOTE | 2018-05-02 12:59 | XR ---
EXAM DATE: 05/02/2018 12:47 PM EDT AGE/SEX: 37 years / Female INDICATIONS: . Short of breath, evaluate atelectasis CLINICAL DATA: This is the patient's initial encounter. Patient reports that signs and symptoms have been present for 2 days and indicates a pain score of 0/10. MEDICAL/SURGICAL HISTORY: Asthma. smoker None. COMPARISON: No prior exams available for comparison. FINDINGS: The heart size is normal. The do appear to be compressive changes secondary to a poor inspiratory eff ort. A distinct consolidation is not clearly seen. No effusion is seen. CONCLUSION: Expiratory chest x-ray without definite acute consolidation or atelectasis. Electronically signed by: Mike Briseno MD 05/02/2018 12:58 PM EDT
[2018-05-02] MEDS ORDERED: Pantoprazole Inj 40 MG Vial IV.PUSH SCH (13:00)
--- NOTE | 2018-05-02 14:08 | P.CONGI ---
History of Present Illness Consult date: 05/02/18 Consult reason: Heme (+) stool, abdominal pain Chief complaint: intractable abdominal pain,heme positive stool History of Present Illness: This is a 37 yo F who has been having multiple GI symptoms for over a year. She was seen by our service in the clinic by Sandie in November and was recommended to have an EGD and colonoscopy, however due to not having insurance pt was unable to affording having the procedures. Pt presented to the ER yesterday with complaints of nausea, vomiting, abdominal pain. States nausea and vomiting have been intermittent for over a year, initially was having emesis daily but the frequency decreased after being started on Phenergan and Omeprazole in November, now reports prior to yesterday no emesis in a few weeks. Since last night has had multiple episode of emesis, denies hematemesis and coffee ground emesis. Also complaining of abdominal pain, has a pain located on both sides of her upper abdomen under her ribcage that she states in constant. States pain changes quality at different times ranging from aching, sharp, and dull. Pain is worse with stress and she avoids food when she has the pain. Also has a pain in her epigastric area that she states begins prior to vomiting and she receives some relief after emesis. Pt reports she has issues with constipation , takes Miralax with some relief but still sometimes will go 3 days with no BM. Has noticed occasional BRB on the toilet paper when she wipes but has attributed this to straining. Also reports an unintentional weight loss of approximately 80 lbs Has never had EGD or colonoscopy. Denies family history of UC, Crohns and colon cancer. Rare ETOH. Smokes 1/2 PPD. Also admits to daily marijuana use. Occasional NSAID use but not more than once a week. <Tiffany Horowitz - Last Filed: 05/02/18 13:50> Review of Systems Constitutional: Reports weight loss Gastrointestinal: Reports abdominal pain, Reports bright, red blood in stools, Reports constipation, Reports nausea, Reports vomiting, Denies black, tarry stools, Denies vomiting blood <Tiffany Horowitz - Last Filed: 05/02/18 13:50> PMFSH - History History Provided By: Patient - Medical History Medical History: Medical History (Last Updated 05/02/18 @ 11:36 by Lorin Lord MD, R1) Abdominal pain Adrenal mass Gonorrhea contact, treated Ovarian cyst - Surgical History Surgical History: Surgical History (Last Updated 05/02/18 @ 11:38 by Lorin Lord MD, R1) H/O breast biopsy Hx of tonsillectomy - Family History Family History: Family History (Last Updated 05/02/18 @ 11:40 by Lorin Lord MD, R1) Grandparent Family history of acute myocardial infarction Family history of cancer Grandparent Family history of breast cancer - Tobacco History Smoking Status: Current every day smoker (1/2 ppd for 2 years) - Alcohol History How Often Do You Have a Drink Containing Alcohol: Never - Substance Use History Substance History: No History of Abuse - Substance Use Type Marijuana Status: Active Route Used: By Mouth Crack/Cocaine Status: Sustained Remission - Travel History Recent Travel in the [facility] Within the Last 8 Weeks: No Recent Travel Out of the Country Within the Last 8 Weeks: No - Immunization History Tetanus Immunization: Unsure Hx Influenza Vaccine This Season: No <Tiffany Horowitz - Last Filed: 05/02/18 13:50> - Medical History Medical History: Medical History (Last Updated 05/02/18 @ 11:36 by Lorin Lord MD, R1) Abdominal pain Adrenal mass Gonorrhea contact, treated Ovarian cyst - Surgical History Surgical History: Surgical History (Last Updated 05/02/18 @ 11:38 by Lorin Lord MD, R1) H/O breast biopsy Hx of tonsillectomy - Family History Family History: Family History (Last Updated 05/02/18 @ 11:40 by Lorin Lord MD, R1) Grandparent Family history of acute myocardial infarction Family history of cancer Grandparent Family history of breast cancer <Charlotte Berg - Last Filed: 05/02/18 15:02> Medications and Allergies Active Medications: Active Medications Acetaminophen (Tylenol) 650 mg PO Q4H PRN PRN Reason: Temp > 100.4 Al Hydroxide/Mg Hydroxide (Milk Of Magnesia Liq) 30 ml PO Q12H PRN PRN Reason: Mild Constipation Bisacodyl (Dulcolax Supp) 10 mg RECTAL DAILY PRN PRN Reason: SEVERE CONSITIPATION Sodium Chloride (Ns Inj) 1,000 mls @ 120 mls/hr IV.CONT .Q8H20M [facility] Last Admin: 05/02/18 12:15 Dose: 120 mls/hr Lactulose (Lactulose Liq) 30 ml PO DAILY PRN PRN Reason: SEVERE CONSITIPATION Ondansetron HCl (Zofran Odt) 4 mg PO Q6H PRN PRN Reason: NAUSEA OR VOMITING Pantoprazole Sodium (Protonix Inj) 40 mg IV.PUSH Q24H [facility] Last Admin: 05/02/18 13:08 Dose: 40 mg Senna/Docusate Sodium (Nereyda-Colace) 1 tab PO BID [facility] Sennosides (Senokot) 17.2 mg PO Q12H PRN PRN Reason: Moderate Constipation Sodium Chloride (Ns Flush) 2 ml IV.FLUSH PRN PRN PRN Reason: FLUSH AFTER USING IV ACCESS Last Admin: 05/02/18 08:33 Dose: 2 ml Temazepam (Restoril) 15 mg PO HS PRN PRN Reason: INSOMNIA <Tiffany Horowitz - Last Filed: 05/02/18 13:50> Active Medications: Active Medications Acetaminophen (Tylenol) 650 mg PO Q4H PRN PRN Reason: Temp > 100.4 Al Hydroxide/Mg Hydroxide (Milk Of Magnesia Liq) 30 ml PO Q12H PRN PRN Reason: Mild Constipation Bisacodyl (Dulcolax Supp) 10 mg RECTAL DAILY PRN PRN Reason: SEVERE CONSITIPATION Sodium Chloride (Ns Inj) 1,000 mls @ 120 mls/hr IV.CONT .Q8H20M [facility] Last Admin: 05/02/18 12:15 Dose: 120 mls/hr Lactulose (Lactulose Liq) 30 ml PO DAILY PRN PRN Reason: SEVERE CONSITIPATION Ondansetron HCl (Zofran Odt) 4 mg PO Q6H PRN PRN Reason: NAUSEA OR VOMITING Pantoprazole Sodium (Protonix Inj) 40 mg IV.PUSH Q24H [facility] Last Admin: 05/02/18 13:08 Dose: 40 mg Polyethylene Glycol/Electrolytes (Colyte Liq) 4,000 ml PO ONCE ONE Stop: 05/02/18 16:01 Senna/Docusate Sodium (Nereyda-Colace) 1 tab PO BID [facility] Sennosides (Senokot) 17.2 mg PO Q12H PRN PRN Reason: Moderate Constipation Sodium Chloride (Ns Flush) 2 ml IV.FLUSH PRN PRN PRN Reason: FLUSH AFTER USING IV ACCESS Last Admin: 05/02/18 08:33 Dose: 2 ml Temazepam (Restoril) 15 mg PO HS PRN PRN Reason: INSOMNIA <Charlotte Berg - Last Filed: 05/02/18 15:02> Allergies Allergy/AdvReac Type Severity Reaction Status Date / Time No Known Allergies Allergy Verified 05/02/18 07:28 Home Medications Medication Instructions Recorded Confirmed Type omeprazole 20 mg PO DAILY 05/02/18 05/02/18 History promethazine 12.5 mg PO Q6H PRN 05/02/18 05/02/18 History ranitidine HCl [Zantac Maximum 150 mg PO DAILY 05/02/18 05/02/18 History Strength] Exam Vital signs: Vital Signs 05/02/18 07:28 05/02/18 07:44 05/02/18 08:10 Temperature 97.7 F Pulse Rate 79 77 Respiratory Rate 18 16 Blood Pressure 197/105 H 172/98 H Pulse Oximetry 100 100 100 05/02/18 09:02 05/02/18 09:03 05/02/18 10:38 Temperature Pulse Rate 59 L 60 Respiratory Rate 16 16 12 Blood Pressure 171/81 H 140/71 Pulse Oximetry 98 99 05/02/18 13:00 Temperature Pulse Rate 78 Respiratory Rate 16 Blood Pressure 153/82 H Pulse Oximetry 100 Intake & Output 05/01/18 05/02/18 05/02/18 18:59 06:59 18:59 Weight 81.647 kg - Constitutional no acute distress - Routine HEENT Exam Head: Present: normocephalic, atraumatic - Routine Respiratory Exam Absent: accessory muscle use - Routine Cardiovascular Exam Present: RRR - Routine Abdominal Exam Present: soft, normoactive bowel sounds, tenderness (upper abdominal tenderness to palpation ). Absent: distended - Routine Skin Exam Present: dry, warm - Routine Neurological Exam Present: alert, oriented X3 <Tiffany Horowitz - Last Filed: 05/02/18 13:50> Vital signs: Vital Signs 05/02/18 07:28 05/02/18 07:44 05/02/18 08:10 Temperature 97.7 F Pulse Rate 79 77 Respiratory Rate 18 16 Blood Pressure 197/105 H 172/98 H Pulse Oximetry 100 100 100 05/02/18 09:02 05/02/18 09:03 05/02/18 10:38 Temperature Pulse Rate 59 L 60 Respiratory Rate 16 16 12 Blood Pressure 171/81 H 140/71 Pulse Oximetry 98 99 05/02/18 13:00 05/02/18 13:50 Temperature 98.1 F Pulse Rate 78 84 Respiratory Rate 16 22 Blood Pressure 153/82 H 146/93 H Pulse Oximetry 100 96 Intake & Output 05/01/18 05/02/18 05/02/18 18:59 06:59 18:59 Weight 81.647 kg <Charlotte Berg - Last Filed: 05/02/18 15:02> Results - Labs CBC & Chem 7: 05/02/18 08:09 05/02/18 08:09 Labs: Laboratory Results - last 24 hr 05/02/18 05/02/18 05/02/18 08:09 08:09 08:25 WBC 9.3 RBC 5.29 Hgb 15.7 H Hct 46.4 H MCV 87.7 MCH 29.7 MCHC 33.9 RDW 14.7 Plt Count 221 MPV 8.3 Neut % (Auto) 71.1 H Lymph % (Auto) 16.7 [place] % (Auto) 7.2 Eos % (Auto) 4.4 H Baso % (Auto) 0.6 Neut # (Auto) 6.6 Lymph # (Auto) 1.6 [place] # (Auto) 0.7 Eos # (Auto) 0.4 Baso # (Auto) 0.1 WBC Differential . Differential Comment Auto diff final Sodium 140 Potassium 3.9 Chloride 110 H Carbon Dioxide 23.8 Anion Gap 6 BUN 12 Creatinine 0.88 Estimated GFR 73 L Random Glucose 128 H Calcium 9.0 Total Bilirubin 0.6 AST 13 L ALT 13 Alkaline Phosphatase 83 Troponin I Total Protein 8.0 Albumin 3.7 Lipase 94 Urine Color Yellow Urine Clarity Clear Urine pH 7.0 Ur Specific [place] 1.019 Urine Protein Negative Urine Glucose (UA) Negative Urine Ketones Negative Urine Occult Blood Negative Urine Nitrate Negative Urine Bilirubin Negative Urine Urobilinogen Less than 2 Ur Leukocyte Esterase Negative Urine RBC 1 Urine WBC 1 Ur Squamous Epith Cells 2 Micro UA Comment Culture not ind Urine Culture Comments Culture not ind 05/02/18 12:23 WBC RBC Hgb Hct MCV MCH MCHC RDW Plt Count MPV Neut % (Auto) Lymph % (Auto) [place] % (Auto) Eos % (Auto) Baso % (Auto) Neut # (Auto) Lymph # (Auto) [place] # (Auto) Eos # (Auto) Baso # (Auto) WBC Differential Differential Comment Sodium Potassium Chloride Carbon Dioxide Anion Gap BUN Creatinine Estimated GFR Random Glucose Calcium Total Bilirubin AST ALT Alkaline Phosphatase Troponin I Less than 0.02 L Total Protein Albumin Lipase Urine Color Urine Clarity Urine pH Ur Specific [place] Urine Protein Urine Glucose (UA) Urine Ketones Urine Occult Blood Urine Nitrate Urine Bilirubin Urine Urobilinogen Ur Leukocyte Esterase Urine RBC Urine WBC Ur Squamous Epith Cells Micro UA Comment Urine Culture Comments - Imaging Impressions Chest X-Ray 05/02/18 00:00 CONCLUSION: Expiratory chest x-ray without definite acute consolidation or atelectasis. Abdomen X-Ray 05/02/18 08:00 CONCLUSION: Negative examination. <Tiffany Horowitz - Last Filed: 05/02/18 13:50> - Labs CBC & Chem 7: 05/02/18 08:09 05/02/18 08:09 Labs: Laboratory Results - last 24 hr 05/02/18 05/02/18 05/02/18 08:09 08:09 08:25 WBC 9.3 RBC 5.29 Hgb 15.7 H Hct 46.4 H MCV 87.7 MCH 29.7 MCHC 33.9 RDW 14.7 Plt Count 221 MPV 8.3 Neut % (Auto) 71.1 H Lymph % (Auto) 16.7 [place] % (Auto) 7.2 Eos % (Auto) 4.4 H Baso % (Auto) 0.6 Neut # (Auto) 6.6 Lymph # (Auto) 1.6 [place] # (Auto) 0.7 Eos # (Auto) 0.4 Baso # (Auto) 0.1 WBC Differential . Differential Comment Auto diff final Sodium 140 Potassium 3.9 Chloride 110 H Carbon Dioxide 23.8 Anion Gap 6 BUN 12 Creatinine 0.88 Estimated GFR 73 L Random Glucose 128 H Calcium 9.0 Total Bilirubin 0.6 AST 13 L ALT 13 Alkaline Phosphatase 83 Troponin I Total Protein 8.0 Albumin 3.7 Lipase 94 Urine Color Yellow Urine Clarity Clear Urine pH 7.0 Ur Specific [place] 1.019 Urine Protein Negative Urine Glucose (UA) Negative Urine Ketones Negative Urine Occult Blood Negative Urine Nitrate Negative Urine Bilirubin Negative Urine Urobilinogen Less than 2 Ur Leukocyte Esterase Negative Urine RBC 1 Urine WBC 1 Ur Squamous Epith Cells 2 Micro UA Comment Culture not ind Urine Culture Comments Culture not ind 05/02/18 12:23 WBC RBC Hgb Hct MCV MCH MCHC RDW Plt Count MPV Neut % (Auto) Lymph % (Auto) [place] % (Auto) Eos % (Auto) Baso % (Auto) Neut # (Auto) Lymph # (Auto) [place] # (Auto) Eos # (Auto) Baso # (Auto) WBC Differential Differential Comment Sodium Potassium Chloride Carbon Dioxide Anion Gap BUN Creatinine Estimated GFR Random Glucose Calcium Total Bilirubin AST ALT Alkaline Phosphatase Troponin I Less than 0.02 L Total Protein Albumin Lipase Urine Color Urine Clarity Urine pH Ur Specific [place] Urine Protein Urine Glucose (UA) Urine Ketones Urine Occult Blood Urine Nitrate Urine Bilirubin Urine Urobilinogen Ur Leukocyte Esterase Urine RBC Urine WBC Ur Squamous Epith Cells Micro UA Comment Urine Culture Comments - Imaging Impressions Chest X-Ray 05/02/18 00:00 CONCLUSION: Expiratory chest x-ray without definite acute consolidation or atelectasis. Abdomen X-Ray 05/02/18 08:00 CONCLUSION: Negative examination. <Charlotte Berg - Last Filed: 05/02/18 15:02> Assessment and Plan - Plan Assessment: - Abdominal pain (describes two separate pains) Upper abdominal pain, constant, underneath both rib cages, quality of pain ranges from sharp, dull, aching. Worse with stress. Unable to eat with pains Epigastric pain, intermittent, burning sensation, worse prior to emesis, some relief after emesis. Has never had EGD. KUB negative. - Weight loss- Unintentional weight loss of approximately 80 lbs for a little over a year. Was evaluated by our service [facility] outpatient, advised to have EGD and colonoscopy, but pt is self pay and could not afford procedures. Denies family history of UC, crohns, and colon cancer. - Nausea and vomiting- Intermittent for over a year, noticed some decrease in frequency after being started on Omeprazole and Phenergan in November. Occasional NSAID use, less than once a week. States Phenergan does not seem to be helping too much. Rare ETOH. Of note, smokes marijuana daily. Also smokes 1/2 PPD of cigarettes. - Constipation with BRB - Takes Miralax as needed, still sometimes will go 3-4 days with no BM. Reports occasional BRB that she notices on the toilet paper when she wipes but has attributed this to straining Has never had colonoscopy. Plan: EGD and colonoscopy tomorrow Obtain consent Clear liquids today Golytely prep NPO after MN CT abdomen and pelvis W IV contrast to evaluate for weight loss Antiemetics PRN Further recommendations to follow Pt has been seen and examined by myself and Dr. Berg and this note is written on his behalf <Tiffany Horowitz - Last Filed: 05/02/18 13:50> - Plan EGD/Colonoscopy tomorrow. - Attending Attestation The exam, history, and the medical decision-making described in the above note were completed with the assistance of the mid-level provider. I reviewed and agree with the findings presented. I attest that I had a [id number] encounter with the patient on the same day, and personally performed and documented my assessment and findings in the medical record. <Charlotte Berg - Last Filed: 05/02/18 15:02>
[2018-05-02] MEDS ORDERED: Diatrizoate Meglum/Diatrizoate Sod Liq 9 ML UDC PO ONE (14:30)
[2018-05-02] MEDS ORDERED: PEG 3350/E-Lyte Soln 4000 ML Bottle PO ONE (16:00)
--- NOTE | 2018-05-02 16:10 | US ---
EXAM DATE: 05/02/2018 4:04 PM EDT AGE/SEX: 37 years / Female INDICATIONS: Abdominal pain. Evaluate appendix as well. CLINICAL DATA: This is the patient's initial encounter. Patient reports that signs and symptoms have been present for > 1 year and indicates a pain score of 3/10. MEDICAL/SURGICAL HISTORY: . Adrenal mass. Ovarian cysts. Tonsillectomy. Breast biopsy. COMPARISON: [facility] – [place], CT ABDOMEN & PELVIS W CONTRAST, 05/27/2017. . MEASUREMENTS: Liver:__ 21.8 cm. Common Bile Duct:___ 4mm. Right Kidney:___11.8 x 5.9 x 5.3 cm. Left Kidney:___12.8 x 5.8 x 6.9 cm. Spleen:___13.3 cm. FINDINGS: Liver: Normal echotexture without focal lesion or ductal dilatation. Portal Vein: Hepatopedal flow seen in portal vein. Common Duct: No intraluminal mass or stone visualized. Gallbladder: Demonstrates no wall thickening or pericholecystic fluid. No stones visualized. Pancreas: The visualized portions are within normal limits Right Kidney: Normal echotexture and cortical thickness. No mass or hydronephrosis. Left Kidney: Normal echotexture and cortical thickness. No mass or hydronephrosis. Ascites: None Pleural Effusion: None Spleen: No focal lesion. Aorta: Non aneurysmal. IVC: Within normal limits Other: The appendix is not visualized. CONCLUSION: 1. Hepatomegaly otherwise unremarkable. Electronically signed by: Cedric Khan MD 05/02/2018 4:08 PM EDT
--- NOTE | 2018-05-02 16:37 | US ---
EXAM DATE: 05/02/2018 4:13 PM EDT AGE/SEX: 37 years / Female INDICATIONS: Pelvic pain. CLINICAL DATA: This is the patient's initial encounter. Patient reports that signs and symptoms have been present for > 1 year and indicates a pain score of 4/10. MEDICAL/SURGICAL HISTORY: . Irregular periods. . Tonsillectomy. Breast biopsy. COMPARISON: [facility] [place], CT PELVIS W/O CONTRAST, 01/27/2018. . MEASUREMENTS: Uterus:__8.6 x 6.3 x 5.2 cm Endometrial Stripe:__15 mm Right Ovary:__ 5.5 x 2.3 x 3.1 cm cm Left Ovary:__ not visualized Not visualized. FINDINGS: The left ovary is not visualized. The right ovary demonstrates a 3.6 x 3.8 x 2.6 cm simple cyst. Endo metrial thickness of 15 mm is noted. Within the endometrium, a cystic structure is identified measuri ng 1.1 x 0.9 x 0.5 cm. There is no increased blood flow. There is no free fluid. CONCLUSION: 1. Partially cystic endometrial structure within the endometrium identified which is thickened up to 15 mm. This is nonspecific. No obvious pole however please correlate with beta hCG levels. 2. Right ovarian cyst, simple in appearance. Electronically signed by: Cedric Khan MD 05/02/2018 4:36 PM EDT
[2018-05-02 21:02] LABS: Hematocrit 43.2 % (35.0-46.0); Hemoglobin 14.5 gm/dL (11.6-15.3)
--- NOTE | 2018-05-02 21:43 | CT ---
EXAM DATE: 05/02/2018 9:11 PM EDT AGE/SEX: 37 years / Female INDICATIONS: Weight loss. CLINICAL DATA: This is the patient's initial encounter. Patient reports that signs and symptoms have been present for 1 day and indicates a pain score of 2/10. MEDICAL/SURGICAL HISTORY: . adrenal mass None. ORAL CONTRAST: Prescribed oral contrast ingested. RADIATION DOSE: 16.49 CTDI (mGy) COMPARISON: [facility] – [place], CT ABDOMEN & PELVIS W CONTRAST, 05/27/2017. . TECHNIQUE: Multiple contiguous axial images were obtained through the abdomen and pelvis following b olus infusion of 93 ml Omnipaque 350 (iohexol) nonionic water-soluble contrast as a single exam dos e. Prescribed oral contrast ingested. Using automated exposure control and adjustment of the mA and/ or kV according to patient size, radiation dose was kept as low as reasonably achievable to obtain op timal diagnostic quality images. DICOM format image data is available electronically for review and comparison. FINDINGS: Minimal basilar atelectasis. No effusion. Mild fatty liver. Spleen and pancreas unremarkable. No calcified gallstones. Comparison is May 2017. Again seen are bilateral adrenal myelolipomas measuring up to 6.6 cm on th e right and 3.7 cm on the left. No free air or free fluid. No bowel obstruction. Examination of the pelvis again reveals a right-sided ovarian cyst which measures about [address] on today's exam compared with previous measurement of 3.7 cm. No acute bony abnormalities. CONCLUSION: 1. No acute findings. 2. 4 cm right ovarian cyst, slightly increased in size from May 2017. 3. Stable bilateral adrenal myelolipomas. Electronically signed by: Malcolm Martinez MD 05/02/2018 9:42 PM EDT
[2018-05-02] MEDS: Senna/Docusate Sodium 8.6/50 MG Tablet PO SCH (22:31)
[2018-05-03] MEDS ORDERED: Naloxone Inj 0.4 MG/ML Vial IV.PUSH PRN (00:22)
[2018-05-03 00:26] VITALS: RESP 16
[2018-05-03 07:25] LABS: Baso % (Auto) 0.4 % (0.0-2.0); Eos # (Auto) 0.3 th/mm3 (0.0-0.4); Eos % (Auto) 4.8 % (0.0-4.0); Hematocrit 42.1 % (35.0-46.0); Hemoglobin 14.4 gm/dL (11.6-15.3); Lymph # (Auto) 1.9 th/mm3 (1.0-4.8); Lymph % (Auto) 25.8 % (9.0-44.0); Mean Corpuscular HGB Conc 34.3 % (32.0-36.0); Mean Corpuscular Hemoglobin 30.4 pg (27.0-34.0); Mean Corpuscular Volume 88.5 fL (80.0-100.0); Mean Platelet Volume 8.6 fL (7.0-11.0); Mono # (Auto) 0.5 th/mm3 (0.0-0.9); Mono % (Auto) 7.4 % (0.0-8.0); Neut # (Auto) 4.5 th/mm3 (1.8-7.7); Neut % (Auto) 61.6 % (16.0-70.0); Platelet Count 186 th/mm3 (150-450); Red Blood Count 4.75 mil/mm3 (4.00-5.30); Red Cell Distribution Width 14.6 % (11.6-17.2); White Blood Count 7.3 th/mm3 (4.0-11.0)
[2018-05-03 07:33] LABS: INR 1.1 Ratio; Prothrombin Time 10.7 sec (9.8-11.6)
[2018-05-03 08:16] LABS: Alanine Aminotransferase 12 U/L (10-53); Albumin 3.3 g/dL (3.4-5.0); Alkaline Phosphatase 74 U/L (45-117); Anion Gap 8 meq/L (5-15); Aspartate Aminotransferase 8 U/L (15-37); Blood Urea Nitrogen 6 mg/dL (7-18); Carbon Dioxide 23.4 meq/L (21.0-32.0); Chloride 109 meq/L (98-107); Glomerular Filtration Rate Greater Than 89 mL/min (>89); Glucose,Random 115 mg/dL (74-106); Potassium 3.7 meq/L (3.5-5.1); Sodium 140 meq/L (136-145); Total Protein 6.9 g/dL (6.4-8.2)
--- NOTE | 2018-05-03 08:51 | ECG ---
Date Performed: 05/02/2018 Time Performed: 12:21:04 PTAGE: 37 years EKG: Sinus rhythm POSSIBLE RIGHT VENTRICULAR CONDUCTION DELAY BORDERLINE ECG NO PREVIOUS TRACING DOCTOR: Dorian Adame Interpretating Date/Time 05/03/2018 08:50:26
--- NOTE | 2018-05-03 10:37 | GIPROC ---
[facility] [address] [facility]. [facility], [address] EGD PROCEDURE REPORT EXAM DATE: 05/03/2018 PATIENT NAME: Katarina Newman MR #: [id number] BIRTHDATE: 1980 ATTENDING: Charlotte Berg MD ORDER #: [id number] HOG STICKER: Fernanda Bazan Hunter, Jordan, and Garett Brunner STATUS: inpatient INDICATIONS: The patient is a 37 yr old female here for an EGD due to epigastric abdominal pain PROCEDURE PERFORMED: EGD w/ biopsy MEDICATIONS: None and Per Anesthesia. TOPICAL ANESTHETIC: CONSENT: The patient understands the risks and benefits of the procedure and understands that these risks include, but are not limited to: sedation, allergic reaction, infection, perforation and/or bleeding. Alternative means of evaluation and treatment include, among others: physical exam, x-rays, and/or surgical intervention. The patient elects to proceed with this endoscopic procedure. medical equipment was checked for proper function. Hand hygiene and appropriate measures for infection prevention was taken. After the risks, benefits and alternatives of the procedure were thoroughly explained, Informed consent was verified, confirmed and timeout was successfully executed by the treatment team. The patient was anesthetized with topical anesthesia and the EC-[id number] (Pedi C) endoscope was introduced through the mouth and advanced to the second portion of the duodenum. Retroflexed views revealed no abnormalities The gastroscope was then slowly withdrawn and removed. ESOPHAGUS: There was LA Class A esophagitis noted. A biopsy was performed using cold forceps. Sample sent for histology. STOMACH: There was erythematous moderate gastritis in the gastric antrum. A biopsy was performed using cold forceps. Sample sent for histology. DUODENUM: The duodenal mucosa appeared normal in the bulb and second portion of the duodenum. ADVERSE EVENTS: There were no complications. IMPRESSIONS: 1. There was LA Class A esophagitis noted; biopsy was performed 2. There was erythematous gastritis in the gastric antrum; biopsy was performed 3. Normal duodenal mucosa in the bulb and second portion of the duodenum 4. Retroflexed views revealed no abnormalities RECOMMENDATIONS: 1. Await biopsy results. Biopsy results will not be ready for 7-10 days. If you don't hear from us in two weeks, call our office for biopsy results. 2. Anti-reflux regimen 3. Continue PPI PATIENT CONDITION: stable DISPOSITION: Inpatient REPEAT EXAM: Return 2 years EGD pending biopsy results Charlotte Berg MD eSigned: Charlotte Berg MD 05/03/2018 10:36 AM cc: PATIENT NAME: Katarina Newman MR#: [id number]
--- NOTE | 2018-05-03 10:47 | GIPROC ---
[employer] [address] [facility]. [facility], [id number] COLONOSCOPY PROCEDURE REPORT EXAM DATE: 05/03/2018 PATIENT NAME: Katarina Newman MR #: [id number] BIRTHDATE: 1980 ENDOSCOPIST: Charlotte Berg MD ORDER #: [id number] BLIND HANGER: Garett Brunner Hunter, Jordan, Fernanda Bazan, and Toshia Viera STATUS: inpatient INDICATIONS: The patient is a 37 yr old female here for a colonoscopy due to abdominal pain and change in bowel habits PROCEDURE PERFORMED: Colonoscopy with biopsy MEDICATIONS: None and Per Anesthesia. PREP QUALITY: The Jenner Bowel Prep Score was Right colon 3, Mid colon 2, and Left colon 3. Total = 8. PREP TYPE:GoLytely ESTIMATED BLOOD LOSS: None CONSENT: The patient understands the risks and benefits of the procedure and understands that these risks include, but are not limited to: sedation, allergic reaction, infection, perforation and/or bleeding. Alternative means of evaluation and treatment include, among others: physical exam, x-rays, and/or surgical intervention. The patient elects to proceed with this endoscopic procedure. medical equipment was checked for proper function. Hand hygiene and appropriate measures for infection prevention was taken. After the risks, benefits and alternatives of the procedure were thoroughly explained, Informed consent was verified, confirmed and timeout was successfully executed by the treatment team. A digital exam revealed external hemorrhoids The Pentax [id number] endoscope was introduced through the anus and advanced to the cecum, which was identified by both the appendix and ileocecal valve. The instrument was then slowly withdrawn as the colon was fully examined. COLON FINDINGS: The colonic mucosa appeared normal in the ascending colon. Multiple random biopsies of the area were performed using cold forceps. Retroflexed views revealed internal hemorrhoids and Retroflexed views revealed medium internal hemorrhoids The scope was then completely withdrawn from the patient and the procedure terminated. PROCEDURE WITHDRAWAL TIME:6minutes ADVERSE EVENTS: There were no complications. IMPRESSIONS: 1. The colonic mucosa appeared normal in the ascending colon; multiple random biopsies of the area were performed using cold forceps 2. Retroflexed views revealed internal hemorrhoids 3. Retroflexed views revealed medium internal hemorrhoids 4. Revealed external hemorrhoids RECOMMENDATIONS: 1. Benefiber 2 tsp daily 2. Await biopsy results. Biopsy results will not be ready for 7-10 days. If you don't hear from us in two weeks, call our office for results. 3. Follow-up: GI Clinic 2 week(s) RECALL: Return 5 years Colonoscopy, pending biopsy results Charlotte Berg MD eSigned: Charlotte Berg MD 05/03/2018 10:47 AM cc:
[2018-05-03] MEDS: Senna/Docusate Sodium 8.6/50 MG Tablet PO SCH (11:16)
[2018-05-03 12:18] VITALS: BP 158/83; PULSE 64; TEMP 98.2; O2SAT 100
--- NOTE | 2018-05-03 13:43 | P.PNFP ---
Subjective Interval history: Patient seen and examined following the EGD/colonoscopy procedure today. Patient states that she is about 70% better than when she arrived to the hospital. Her abdominal pain has decreased and her epigastric pain has decreased. She has not had any nausea or vomiting. She is hungry and would like to eat some food. She feels okay with going home. No acute events overnight. No chest pain/shortness of breath/dizziness. <Indigo Jasso - 05/03/18 14:44> Results - Labs Result diagrams: 05/03/18 06:15 05/03/18 06:15 <Emmanuel Dockery - 05/04/18 08:29> Abnormal lab results 05/03/18 Range/Units 13:30 Lipase 66 L (73-393) U/L <Emmanuel Dockery - 05/04/18 08:29> Abnormal lab results 05/03/18 05/03/18 Range/Units 06:15 06:15 Eos % (Auto) 4.8 H (0.0-4.0) % Chloride 109 H (98-107) meq/L BUN 6 L (7-18) mg/dL Random Glucose 115 H (74-106) mg/dL Calcium 8.0 L D (8.5-10.1) mg/dL AST 8 L (15-37) U/L Albumin 3.3 L (3.4-5.0) g/dL Short CBC 05/02/18 05/03/18 Range/Units 19:42 06:15 WBC 7.3 (4.0-11.0) th/mm3 Hgb 14.5 14.4 (11.6-15.3) gm/dL Hct 43.2 42.1 (35.0-46.0) % Plt Count 186 (150-450) th/mm3 BMP 05/03/18 06:15 Sodium 140 Potassium 3.7 Chloride 109 H Carbon Dioxide 23.4 BUN 6 L Creatinine 0.69 Calcium 8.0 L D Liver Function 05/03/18 Range/Units 06:15 Total Bilirubin 0.6 (0.2-1.0) mg/dL AST 8 L (15-37) U/L ALT 12 (10-53) U/L Alkaline Phosphatase 74 (45-117) U/L Albumin 3.3 L (3.4-5.0) g/dL <Indigo Jasso - 05/03/18 13:43> - Imaging Impressions Abdomen Ultrasound 05/02/18 00:00 CONCLUSION: 1. Hepatomegaly otherwise unremarkable. Abdomen/Pelvis CT 05/02/18 00:00 CONCLUSION: 1. No acute findings. 2. 4 cm right ovarian cyst, slightly increased in size from May 2017. 3. Stable bilateral adrenal myelolipomas. Pelvis Ultrasound 05/02/18 00:00 CONCLUSION: 1. Partially cystic endometrial structure within the endometrium identified which is thickened up to 15 mm. This is nonspecific. No obvious pole however please correlate with beta hCG levels. 2. Right ovarian cyst, simple in appearance. <Indigo Jasso - 05/03/18 13:43> Physical Exam Vital signs: Vital Signs 05/03/18 10:55 05/03/18 12:00 Temperature 97.9 F 98.2 F Pulse Rate 63 64 Respiratory Rate 16 16 Blood Pressure 141/77 H 158/83 H Pulse Oximetry 99 100 Intake & Output 05/03/18 05/04/18 05/04/18 18:59 06:59 18:59 Intake Total 200 / 200 Balance 200 / 200 Intake: Anesthesia Amount 200 / 200 <Emmanuel Dockery - 05/04/18 08:29> Vital Signs 05/02/18 13:50 05/02/18 15:17 05/02/18 20:00 Temperature 98.1 F 98.4 F Pulse Rate 84 82 66 Respiratory Rate 22 22 17 Blood Pressure 146/93 H 148/88 H 175/98 H Pulse Oximetry 96 96 97 05/03/18 00:00 05/03/18 03:42 05/03/18 07:30 Temperature 98.2 F 98 F 98.0 F Pulse Rate 59 L 61 60 Respiratory Rate 16 16 16 Blood Pressure 119/73 139/79 156/80 H Pulse Oximetry 98 99 98 05/03/18 10:55 05/03/18 12:00 Temperature 97.9 F 98.2 F Pulse Rate 63 64 Respiratory Rate 16 16 Blood Pressure 141/77 H 158/83 H Pulse Oximetry 99 100 Intake & Output 05/02/18 05/03/18 05/03/18 18:59 06:59 18:59 Intake Total 2600 / 2600 200 / 200 Output Total 0 / 0 Balance 0 / 0 2600 / 2600 200 / 200 Weight 81.647 kg 81.62 kg Intake: IV 1100 / 1100 NS Inj 1,000 ML @ 120 mls/hr IV 1000 / 1000 .CONT .Q8H20M NOVA Rx#:[id number] Ofirmev Inj 1,000 mg In 100 ml 100 / 100 @ 400 mls/hr IV.SIG Q6H NOVA Rx# :[id number] Oral 1500 / 1500 Anesthesia Amount 200 / 200 Output: Urine 0 / 0 <[facility] 05/03/18 13:43> - Constitutional no acute distress <[facility] 05/03/18 14:44> - Routine Respiratory Exam Present: CTA bilaterally. Absent: accessory muscle use, decreased breath sounds , wheezes <[facility] 05/03/18 14:44> - Routine Cardiovascular Exam Present: RRR, S1, S2. Absent: murmur <[facility] 05/03/18 14:44> - Routine Abdominal Exam Present: soft, normoactive bowel sounds, tenderness (Tenderness to deep palpation only in all quadrants, deep palpation of epigastric region. No tenderness to mild or moderate palpation. No peritoneal signs. No rebound tenderness.) <[facility] 05/03/18 14:44> - Routine Extremities Exam Absent: cyanosis, clubbing, edema <[facility] 05/03/18 14:44> Assessment and Plan - Assessment (1) Abdominal pain Code(s): R10.9 - Unspecified abdominal pain Status: Acute (2) Irregular periods/menstrual cycles Code(s): N92.6 - Irregular menstruation, unspecified Status: Acute (3) Ovarian cyst Code(s): N83.209 - Unspecified ovarian cyst, unspecified side Status: Acute (4) GERD (gastroesophageal reflux disease) Code(s): K21.9 - Gastro-esophageal reflux disease without esophagitis Status: Acute (5) Nutrition, metabolism, and development symptoms Code(s): R63.8 - Other symptoms and signs concerning food and fluid intake Status: Acute (6) DVT prophylaxis Status: Acute <Emmanuel Dockery - 05/04/18 08:29> (1) Abdominal pain Code(s): R10.9 - Unspecified abdominal pain Status: Acute Plan: Midepigastric abdominal pain with radiation to esophagus and back, associated nausea and vomiting for over a year and dark tarry/bloody stools, abnormal periods. DDX: Peptic Ulcer /GERD/ Costochondrasis /Pancreatitis/ Cholecystitis Appendicitis/ Ovarian Cysts/ /Cardiac CXRay: Negative Lipase: Negative EKG and troponin negative Urine : Negative Transvaginal U/S: Cystic structure 1.10.5 cm with no blood flow in the endometrium, endometrium thickened up to 15 mm, no pole Beta hCG quantitative: Negative Abd Xray: Negative Abd U/S: Hepatomegaly otherwise unremarkable EBC normal, hemoglobin stable GI consulted and status post EGD/colonoscopy, appreciate recommendations; class A esophagitis, biopsy performed. Erythematous gastritis and gastric antrum, biopsy performed. Colon mucosa appeared normal, multiple random biopsies performed. Internal and external hemorrhoids appeared. Continue antireflux regimen and await biopsy results via phone. (2) Irregular periods/menstrual cycles Code(s): N92.6 - Irregular menstruation, unspecified Status: Acute Plan: Periods occur every 3 months and last for one day w/ hx of ovarian cysts, history of insulin resistance, thickened endometrial lining on transvaginal ultrasound Likely diagnosis PCOS Patient does not tolerate metformin Current smoker, we cannot prescribe OCPs for a 37-year-old female, obese, smoking Follow-up with academic support specialist for further workup (3) Ovarian cyst Code(s): N83.209 - Unspecified ovarian cyst, unspecified side Status: Acute Plan: Patient has irregular periods, history of ovarian cysts, and abdominal pain Transvaginal ultrasound: 4 cm right ovarian cyst, slightly larger than imaging in 2017 Pain may be due to ovarian cyst versus other GI disease as mentioned above Follow-up with transvaginal ultrasound in 6 months Follow-up with academic support specialist treatment for PCOS (4) GERD (gastroesophageal reflux disease) Code(s): K21.9 - Gastro-esophageal reflux disease without esophagitis Status: Acute Plan: Past Hx of GERD, currently on Omeprazole/Ranitidine PO daily. Mother had success with sucralfate We will discharge with sucralfate 1 g 4 times daily 1 months -If this medication is too expensive the patient should take omeprazole 20 mg twice daily and ranitidine 8 weeks, follow-up with GI for stepdown regimen (5) Nutrition, metabolism, and development symptoms Code(s): R63.8 - Other symptoms and signs concerning food and fluid intake Status: Acute Plan: Fluids: NS at 120 mls/hr. Electrolytes: Stable. Monitor and replete as needed. Diet: Okay for regular diet postprocedure (6) DVT prophylaxis Status: Acute Plan: SCDs Only <Indigo Jasso - 05/03/18 14:31> - Assessment and Plan 37-year-old female presents to ED for mid epigastric abdominal pain with associated nausea and vomiting, FOBT positive. <Indigo Jasso - 05/03/18 13:43> - Attending Attestation The exam, history, and the medical decision-making described in the above note were completed with the assistance of the resident physician. I reviewed and agree with the findings presented. I attest that I had a qxfl-mg-hmtn encounter with the patient on the same day, and personally performed and documented my assessment and findings in the medical record. Janie INIGUEZ <Emmanuel Dockery - 05/04/18 08:29>
--- NOTE | 2018-05-05 10:31 | P.DS ---
Date of admission: 05/02/18 12:54 Primary care physician: UNKNOWN Brief History from admission: 37 year old female presents to the ED for abdominal pain with associated nausea and vomiting. This pain has been going on for about a year, located "under the rib cage" bilaterally. The pain is worse in the morning, describes it as a somewhat sharp, somewhat dull and burning pain that occurs. It radiates towards her back and up her esophagus. It occurs on and off throughout the day, she says that spicy/fried foods and red sauce foods and eating late at night triggers the pain more. She's changed her diet to avoid these food and it decreased the vomiting from everyday to once a week. She took some nausea medication to try to help but it didn't seem to help. Has not taken any pain medication for relief. She saw a GI doctor in November who prescribed her omeprazole but was unable to fill it until 2 weeks ago due to insurance issues. Currently takes omeprazole once a day and has been taking it for 2-3 weeks with minimal relief. She vomited twice this morning but denies any hematemesis or bilious content and that prompted her to come to the emergency room to seek further care. DS: Diagnosis - Discharge Diagnosis (1) Abdominal pain Status: Acute (2) Irregular periods/menstrual cycles Status: Acute (3) Ovarian cyst Status: Acute (4) GERD (gastroesophageal reflux disease) Status: Acute (5) Nutrition, metabolism, and development symptoms Status: Acute (6) DVT prophylaxis Status: Acute DS: Medications - Discharge Medications Prescriptions: lisinopril-hydrochlorothiazide 1 tab PO DAILY 90 Days #90 tab omeprazole magnesium [Prilosec] 20 mg PO BID 30 Days #60 tab promethazine 12.5 mg PO Q6H PRN 30 Days #15 tab PRN Reason: Nausea ranitidine HCl [Zantac Maximum Strength] 150 mg PO DAILY 30 Days #30 tab sucralfate 1 g PO Q6H 30 Days #120 tab DS: Summary Hospital Course: 37-year-old female presented to the ED for mid epigastric abdominal pain with associated nausea and vomiting that has been happening for 1 year, with associated irregular periods. Trace FOBT positive on admission. Transvaginal ultrasounds showed 4 cm right ovarian cyst. Beta hCG quant negative. GI was consulted and patient went for a endoscopy and colonoscopy. Colonoscopy revealed internal and external hemorrhoids. Endoscopy revealed LA Class A esophagitis and erythematous gastritis. Biopsies were done during colonoscopy and endoscopy. Patient advised to start Benefiber 2 teaspoons daily, PPI and antireflux regimen. During hospital stay, patient was found to be hypertensive, Clonidine 0.1 mg was added for as needed for HBP. Patient was discharged home on lisinopril-hydrochlorothiazide 10-12.5 mg 1 tablet p.o. daily for 90 days for HBP, omeprazole 10 mg twice daily daily for 30 days, Sucralfate 1 g q6 for 30 days. She is to continue her promethazine 12.5 mg q6 for nausea and ranitidine 150 mg p.o. daily for 30 days. Patient to follow-up with GI in 2 weeks to discuss biopsy results and to follow- up with english adjunct faculty for treatment of possible PCOS and right ovarian cyst. - Time Spent with Patient Total time spent providing and/or coordinating discharge services: Less than 30 minutes - Quality: VTE Deep Vein Thrombosis/Pulmonary Embolism Present on Admission: No Results Procedures completed during hospitalization: Colonoscopy and endoscopy completed with no complications on 05/03 - Impressions ITS Impressions Abdomen Ultrasound 05/02/18 00:00 CONCLUSION: 1. Hepatomegaly otherwise unremarkable. Abdomen/Pelvis CT 05/02/18 00:00 CONCLUSION: 1. No acute findings. 2. 4 cm right ovarian cyst, slightly increased in size from May 2017. 3. Stable bilateral adrenal myelolipomas. Chest X-Ray 05/02/18 00:00 CONCLUSION: Expiratory chest x-ray without definite acute consolidation or atelectasis. Pelvis Ultrasound 05/02/18 00:00 CONCLUSION: 1. Partially cystic endometrial structure within the endometrium identified which is thickened up to 15 mm. This is nonspecific. No obvious pole however please correlate with beta hCG levels. 2. Right ovarian cyst, simple in appearance. Abdomen X-Ray 05/02/18 08:00 CONCLUSION: Negative examination. Discharge Plan - Discharge Disposition Patient Disposition: 01 Discharge Home - Discharge Condition Condition: Stable - Discharge Order Discharge Orders: Discharge Order (Routine); Ordered 05/03/18 Ordered By: Indigo Jasso - Physicians Team Primary Care Provider: UNKNOWN, Attending Provider: Emmanuel Dockery Other Providers: Charlotte Berg MD
== END 2018-05-03 14:34 | disposition home or self-care (01) ==
LOC: NEPHCDU 07:26 → NEDA 07:26 → NEPC 07:26 → OBSVTOIN 12:54 → NEDA 13:21 → NEPHCDU 13:22
PROVIDERS: ADMIT Family Medicine; ATTEND Family Medicine
PROC: PANENDO (2018-05-03 10:22)
PROC: COLONOS (2018-05-03 10:22)
DX: K64.4 Residual hemorrhoidal skin tags; E28.2 Polycystic ovarian syndrome; I10 Essential (primary) hypertension; K64.8 Other hemorrhoids; K29.70 Gastritis, unspecified, without bleeding; K92.1 Melena; F17.210 Nicotine dependence, cigarettes, uncomplicated; N92.6 Irregular menstruation, unspecified; R63.4 Abnormal weight loss; G89.29 Other chronic pain; K21.0 Gastro-esophageal reflux disease with esophagitis